=== PATIENT | female | born 1945 | race Hispanic/Latino ===

== ENCOUNTER 2019-03-12 00:13 | Emergency (ER) | payer OTHER ==
[~2019-03-12 00:13] MED LIST: ASPI-1012 PO; ATOR40TA71 PO; DONE5TAB33 PO; HYDR-4457 PO; HYDR12.54 PO; LORA10CA9 PO; LOSA25TA41 PO; METF-444 PO; SERT50TA12 PO; cranberry PO; vitamin c PO
[2019-03-12 00:36] LABS: BASOPHILS % (AUTO) 0.8 % (0.0-5.0); EOSINOPHILS % (AUTO) 1.7 % (0.0-8.0); HEMATOCRIT 35.3 % (36-48); LYMPHOCYTES % (AUTO) 16.9 % (21.0-51.0); MEAN CORPUSCULAR HEMOGLOBIN 29.7 pg (27.0-33.0); MEAN CORPUSCULAR HGB CONC 33.5 g/dL (32.0-36.0); MEAN CORPUSCULAR VOLUME 88.6 fL (79-99); MONOCYTES % (AUTO) 8.3 % (3.0-13.0); NEUTROPHILS % (AUTO) 72.3 % (40.0-77.0); PLATELET COUNT (AUTO) 305 K/uL (130-400); RED BLOOD CELL COUNT(AUTO) 3.99 MIL/uL (4.00-5.50); RED CELL DISTRIBUTION WIDTH 16.2 % (11.0-15.5); WHITE BLOOD COUNT (AUTO) 13.6 K/uL (4.8-10.8)
[2019-03-12 00:45] LABS: POTASSIUM 3.5 mmol/L (3.5-5.1)
[2019-03-12 00:47] LABS: INR 0.95 (0.85-1.15); PARTIAL THROMBOPLASTIN TIME 24.8 SEC (26.3-35.5)
[2019-03-12 00:49] LABS: ALBUMIN 3.9 g/dL (3.5-5.0); BILIRUBIN,TOTAL 0.6 mg/dL (0.2-1.0); TOTAL PROTEIN, SERUM 7.8 g/dL (6.0-8.3)
[2019-03-12] MEDS ORDERED: HYDROCODONE/ACETAMINOPHEN 5/325 MG TAB ONE (01:44)
[2019-03-12] MEDS ORDERED: KETOROLAC TROMETHAMINE 15MG/ML ONE (03:28)
== END 2019-03-12 04:11 | disposition home or self-care (01) ==
LOC: EDH 00:13
DX: M17.12 Unilateral primary osteoarthritis, left knee (principal); I10 Essential (primary) hypertension; F03.90 Unspecified dementia, unspecified severity, without behavioral disturbance, psychotic disturbance, mood disturbance, and anxiety; E11.9 Type 2 diabetes mellitus without complications; E78.5 Hyperlipidemia, unspecified; Z88.1 Allergy status to other antibiotic agents; Z88.8 Allergy status to other drugs, medicaments and biological substances; W18.39XA Other fall on same level, initial encounter; Y93.89 Activity, other specified; Y92.098 Other place in other non-institutional residence as the place of occurrence of the external cause; Y99.8 Other external cause status
CPT/HCPCS: 36415; 73562; 80053; 84484; 85025; 85378; 85610; 85730; 93005; 93971; 96374; 99285; J1885

== ENCOUNTER 2019-06-04 14:44 | Emergency (ER) | payer OTHER ==
[2019-06-04] MEDS ORDERED: IBUPROFEN 600 MG TABLET ONE (15:43)
== END 2019-06-04 15:56 | disposition home or self-care (01) ==
LOC: EDH 14:44
DX: S13.4XXA Sprain of ligaments of cervical spine, initial encounter (principal); R51 Headache; E11.9 Type 2 diabetes mellitus without complications; I10 Essential (primary) hypertension; E78.5 Hyperlipidemia, unspecified; F03.90 Unspecified dementia, unspecified severity, without behavioral disturbance, psychotic disturbance, mood disturbance, and anxiety; Z88.1 Allergy status to other antibiotic agents; V49.59XA Passenger injured in collision with other motor vehicles in traffic accident, initial encounter; Y93.89 Activity, other specified; Y92.410 Unspecified street and highway as the place of occurrence of the external cause; Y99.8 Other external cause status
CPT/HCPCS: 70450; 72125

== ENCOUNTER 2022-02-09 21:56 | Emergency (ER) | payer OTHER ==
[~2022-02-09] VITALS: Ht 154.9 cm; Wt 65.8 kg
[~2022-02-09 21:56] MED LIST changes: +SERT-439 PO; -SERT50TA12 PO
[2022-02-09 22:35] LABS: BASOPHILS % (AUTO) 0.6 % (0.0-5.0); EOSINOPHILS % (AUTO) 1.3 % (0.0-8.0); HEMATOCRIT 38.2 % (36-48); LYMPHOCYTES % (AUTO) 14.9 % (21.0-51.0); MEAN CORPUSCULAR HEMOGLOBIN 30.4 pg (27.0-33.0); MEAN CORPUSCULAR HGB CONC 32.7 g/dL (32.0-36.0); MEAN CORPUSCULAR VOLUME 92.9 fL (79-99); MONOCYTES % (AUTO) 10.3 % (3.0-13.0); NEUTROPHILS % (AUTO) 72.5 % (40.0-77.0); PLATELET COUNT (AUTO) 237 K/uL (130-400); RED BLOOD CELL COUNT(AUTO) 4.11 MIL/uL (4.00-5.50); WHITE BLOOD COUNT (AUTO) 9.8 K/uL (4.8-10.8)
[2022-02-09 22:37] LABS: APPEARANCE,URINE Clear (CLEAR); BILIRUBIN,URINE Negative (NEGATIVE); COLOR,URINE Yellow (YELLOW); GLUCOSE, URINE (UA) Negative (NEGATIVE); KETONES,URINE Negative (NEGATIVE); LEUKOCYTE ESTERASE ,URINE Moderate (NEGATIVE); NITRATE,URINE Positive (NEGATIVE); OCCULT BLOOD,URINE Trace (NEGATIVE); PH,URINE 5.5 (5.0-8.0); PROTEIN,URINE Negative (NEGATIVE); UROBILINOGEN,URINE 0.2 mg/dL (0.2-1.0)
[2022-02-09 22:57] LABS: BACTERIA,URINE Moderate /HPF (None Seen); RBC,URINE 0-1 /HPF (0-1)
[2022-02-09 22:58] LABS: SQUAMOUS EPITHELIAL CELL,UR Rare /HPF (0-2)
[2022-02-09 23:21] LABS: POTASSIUM 3.7 mmol/L (3.5-5.1)
[2022-02-09 23:26] LABS: ALBUMIN 4.2 g/dL (3.5-5.0); BILIRUBIN,TOTAL 0.3 mg/dL (0.2-1.0); TOTAL PROTEIN, SERUM 8.2 g/dL (6.0-8.3)
[2022-02-09 23:42] LABS: INR 0.96 (0.85-1.15); PARTIAL THROMBOPLASTIN TIME 21.1 SEC (26.3-35.5)
[2022-02-09 23:49] VITALS: BP 139/62
[2022-02-10] MEDS ORDERED: MACR100 PO (00:12)
== END 2022-02-10 00:27 | disposition home or self-care (01) ==
LOC: EDH 21:56
DX: N30.00 Acute cystitis without hematuria (principal); K92.2 Gastrointestinal hemorrhage, unspecified; N93.9 Abnormal uterine and vaginal bleeding, unspecified; E11.9 Type 2 diabetes mellitus without complications; F32.A Depression, unspecified; I10 Essential (primary) hypertension; Z79.82 Long term (current) use of aspirin; Z79.84 Long term (current) use of oral hypoglycemic drugs; Z79.899 Other long term (current) drug therapy; Z88.1 Allergy status to other antibiotic agents
CPT/HCPCS: 36415; 70450; 80053; 81001; 85025; 85610; 85730; 87077; 87088; 87186

== ENCOUNTER 2024-12-21 14:12 | Inpatient (IN) | payer OTHER ==
[~2024-12-21] VITALS: Ht 157.5 cm; Wt 50.1 kg
[~2024-12-21 14:12] MED LIST changes: +MACR100 PO
--- NOTE | 2024-12-21 14:54 | ERN ---
General Chief Complaint: Other Problems Stated Complaint: WORSENING DEMENTIA AND DIARRHEA Time Seen by MD: 14:15 Source: patient, family History of Present Illness Initial Comments Patient is a 79-year-old female with a past medical history of diabetes, hypertension, hypercholesterolemia, depression, and dementia. Patient was brought to the emergency room by her granddaughter with complaints of loose stools for 3 days. Patient said the diarrhea was sudden in onset, continuous in frequency. Patient has changed pads 4 times today. There is associated loss of appetite Allergies: Coded Allergies: cephalexin (Unverified Allergy, Intermediate, SWELLING, 10/15/18) famciclovir (Unverified Allergy, Mild, DONT REMEMBER, 10/15/18) Home Meds Active Scripts Nitrofurantoin/Nitrofuran Mac (Macrobid) 100 Mg Cap, 1 CAP PO BID for 7 Days, #14 CAP 0 Refills Prov:JEM CHUA MD 02/10/22 Hydrocodone/Acetaminophen ([place] 5-325 Tablet) 1 Each Tablet, 1-2 EACH PO Q6HPRN PRN for psin, #90 TAB Prov:KYLAH IBARRA MD 10/20/18 Aspirin (ASPIRIN) 325 Mg Tablet, 325 MG PO BID, #60 TAB Prov:KYLAH IBARRA MD 10/20/18 Reported Medications [cranberry] No Conflict Check, 1 TAB PO DAILY 10/15/18 [vitamin c] No Conflict Check, 2000 MG PO DAILY 10/15/18 Atorvastatin Calcium (Atorvastatin Calcium) 40 Mg Tablet, 40 MG PO DAILY, TAB 10/15/18 Hydrochlorothiazide (Hydrochlorothiazide) 12.5 Mg Tablet, 12.5 MG PO DAILY, TAB 10/15/18 Metformin HCl (Metformin HCl) 500 Mg Tablet, 500 MG PO BID, TAB 10/15/18 Donepezil HCl (Donepezil HCl) 5 Mg Tablet, 5 MG PO HS, TAB 10/15/18 Sertraline HCl (Sertraline HCl) 50 Mg Tablet, 50 MG PO DAILY, TAB 10/15/18 Loratadine (Loratadine) 10 Mg Capsule, 10 MG PO DAILY, CAP 10/15/18 Losartan Potassium (Losartan Potassium) 25 Mg Tablet, 25 MG PO DAILY, TAB 10/15/18 Past Medical History Past Medical History: Dementia, Diabetes-Type II, Hypertension Past Surgical History: None ROS Dictation Unable to obtain a review of system because of patient's dementia and poor cognition Physical Exam Physical Exam Dictation General: Alert & Oriented, No acute distress. EENT: No conjunctival redness or discharge noted Tympanic membranes are clear, Normal hearing, Oral mucosa is moist, No pharyngeal erythema, No nasal discharge, No oral lesions. Neck: Non-tender, No jugular vein distention, No lymphadenopathy, No thyromegaly, Supple. Respiratory: Lungs are clear to auscultation, Respirations are non-labored, Breath sounds are equal, No chest wall tenderness, _. Cardiovascular: Normal rate, Normal rhythm, No murmur, Good pulses equal in all extremities, Normal peripheral perfusion, No edema. Gastrointestinal: Soft, Non-tender, Non-distended, Normal bowel sounds, No organomegaly, _. Musculoskeletal: Normal range of motion, Normal strength, No tenderness, No swelling, No deformity, Normal gait. Integumentary: Warm, Dry, [place], Intact, No pallor, No rash. Neurologic: Alert, Oriented x4, Normal sensory, No focal defects Psychiatric: Cooperative, Appropriate mood & affect, Normal judgement, Non- suicidal. Results Laboratory and Microbiology Lab and Micro Result Laboratory Tests Test 12/21/24 15:50 White Blood Count 13.4 K/uL (4.8-10.8) H Red Blood Count 3.85 MIL/uL (4.00-5.50) L Hemoglobin 12.1 g/dL (12.0-16.0) Hematocrit 35.2 % (36-48) L Mean Corpuscular Volume 91.4 fL (79-99) Mean Corpuscular Hemoglobin 31.4 pg (27.0-33.0) Mean Corpuscular Hemoglobin Concent 34.4 g/dL (32.0-36.0) Red Cell Distribution Width 14.2 % (11.0-15.5) Platelet Count 324 K/uL (130-400) Mean Platelet Volume 10.5 fL (7.5-10.5) Immature Granulocyte % (Auto) 0.6 % (0-1) Neutrophils (%) (Auto) 88.3 % (40.0-77.0) H Lymphocytes (%) (Auto) 4.6 % (21.0-51.0) L Monocytes (%) (Auto) 6.4 % (3.0-13.0) Eosinophils (%) (Auto) 0.0 % (0.0-8.0) Basophils (%) (Auto) 0.1 % (0.0-5.0) Neutrophils # (Auto) 11.8 K/uL (1.8-7.7) H Lymphocytes # (Auto) 0.6 K/uL (1.0-4.8) L Monocytes # (Auto) 0.9 K/uL (0.1-1.0) Eosinophils # (Auto) 0.00 K/uL (0.00-0.70) Basophils # (Auto) 0.02 K/uL (0.00-0.20) Absolute Immature Granulocyte (auto 0.08 K/uL (0-1) Nucleated Red Blood Cells 0.0 % (0.0-0.19) White Cell Morphology Comment See comments Sodium Level 144 mmol/L (136-145) Potassium Level 3.6 mmol/L (3.5-5.1) Chloride Level 106 mmol/L (101-111) Carbon Dioxide Level 28 mmol/L (21-32) Blood Urea Nitrogen 31 mg/dL (7-18) H Creatinine 1.5 mg/dL (0.5-1.0) H Glomerular Filtration Rate Calc 35 mL/min (>90) Random Glucose 224 mg/dL (70-105) H Total Calcium 8.6 mg/dL (8.5-10.1) Total Bilirubin 0.5 mg/dL (0.2-1.0) Aspartate Amino Transf (AST/SGOT) 23 U/L (10-37) Alanine Aminotransferase (ALT/SGPT) 14 U/L (12-78) Alkaline Phosphatase 94 U/L (50-136) Total Protein 7.6 g/dL (6.0-8.3) Albumin 3.2 g/dL (3.5-5.0) L MDM Potential differential diagnoses include: * Acute gastroenteritis * Dementia * Dehydration Assessment: I will order a CBC was done in order to to rule any anemia, infections and to evaluate, CMP was ordered in order to assess. various electrolytes, kidney function, liver function ,protein levels and blood glucose levels, Urinalysis to rule out any urinary tract infection. PCR stool to rule out any viruses as a cause of the loose stools. We will order a CT head and brain without contrast to rule out any ischemia as a cause of altered mental status.Will order 1 Liter of NS for adequate hydration. I will re-evaluate the patient after treatment and diagnostic exams have returned to determine whether they require further testing, can be safely discharged home, or need admission for further treatment and evaluation. Given the social determinants of health affecting care, including literacy, access to medical care, prescription drug management, and [id number] drugs, I will ensure that treatment plans are tailored accordingly. Revaluation : Patient is alert and oriented. Continues with the confusion and agitation Disposition: Will admit the patient for further evaluation and management. Attestation: Patient's case was discussed with the ER MD. Reviewed the documentation, medical decision making and treatment plan. Agrees with the findings and plan of care. CC: Worsening behavior aggression due to dementia, also a few days of loose stool. Historian: Granddaughter, patient has a dementia and is an unreliable historian. Comorbidities: Advanced age, dementia, diabetes type 2, hypertension Limitations by social determinants of health: None Vital signs: Mild hypertension otherwise stable, remained stable here in the ER. Differential diagnosis: Worsening dementia, UTI, infection, brain bleed, metabolic abnormality, diarrhea, dehydration, other. Labs (independently ordered and interpreted by me): Leukocytosis 13.4 1000 left shift 88% neutrophils. No bands. No anemia. Chemistry panel shows a creatinine 1.5 BUN at 31, mild DIANNE. I compared this to previous labs and this appears to be an DIANNE. Also hyperglycemia 224. No signs of DKA CT head without contrast ( independently interpreted by me ): No acute bleeding. CT abdomen and pelvis without contrast ( independently interpreted by me ): No acute abnormalities. No free air. No surgical changes. No major abnormalities. treatment in ED: 1 L of normal saline, Rocephin Patient has DIANNE leukocytosis and diarrhea and hyperglycemia. We will treat these conditions here in the ER. Also the patient was significantly worsening dementia in the family is unable to care for the patient. Patient will need lalit e management for placement afterwards. Family agrees with the admission. We will admit. Consultation: Hospitalist for admission. ED Course Orders Procedure Category Date Status Time Cbc With Differential LAB 12/21/24 Complete 14:19 Comprehensive LAB 12/21/24 Complete Metabolic Panel 14:19 0.9%Nacl 1000ml (Ns PHA 2/12/25 Complete 1000ml) 14:30 Stool Culture YADIRA 12/21/24 Logged 14:21 Stool Panel Gi By Pcr LAB 12/21/24 Logged 14:47 Ct Head/Brain W/O CT 12/21/24 Resulted Contrast 14:47 Ct Abdomen/Pelvis W/O CT 12/21/24 Resulted Contrast 14:47 Urinalysis Profile LAB 12/21/24 Logged 14:54 Lactated Ringers PHA 12/21/24 In Process 1000ml (Lactated 17:00 Ceftriaxone 1g Vial PHA 12/21/24 Complete (Rocephine 1g Inj) 17:00 Current Medications Medications (Trade) Dose Ordered Sig/Pasha Route PRN Reason Start Time Stop Time Status Last Admin Dose Admin Ceftriaxone Sodium (ROCEphine 1G INJ) 1 gm ONCE ONCE IVPB 12/21/24 17:00 12/21/24 17:12 DC Lactated Ringer's 1,000 ml @ 125 mls/hr ONCE ONCE IV 12/21/24 17:00 12/22/24 00:59 Sodium Chloride 1,000 ml @ 0 mls/hr ONCE ONCE IV 12/21/24 14:30 12/21/24 14:31 DC Vital Signs Date Time Temp Pulse Resp B/P (MAP) Pulse Ox O2 Delivery O2 Flow Rate FiO2 12/21/24 14:14 99.7 98 20 150/79 98 0 DX & DISP Disposition: Inpatient Departure Impression: Primary Impression: DIANNE (acute kidney injury) Additional Impressions: History of dementia, Dehydration, Diarrhea, Hyper glycemia Critical Time: 30 minutes (Critical Care Procedure NoteAuthorized and Performed by: meTotal critical care time: Approximately 36 minutesDue to a high probability of clinically significant, life threatening deterioration, the patient required my highest level of preparedness to intervene emergently and I personally spent this critical care time directly and personally managing the patient. This critical care time included obtaining a history; examining the patient; pulse oximetry; ordering and review of studies; arranging urgent treatment with development of a management plan; evaluation of patient's re sponse to treatment; frequent reassessment; and, discussions with other providers.This critical care time was performed to assess and manage the high probability of imminent, life-threatening deterioration that could result in multi-organ failure. It was exclusive of separately billable procedures and treating other patients and teaching time.Please see MDM section and the rest of the note for further information on patient assessment and treatment.) Condition: Stable Referrals: RODRIGUE DUKE MD (PCP) SINDHU FUNG MD Dec 21, 2024 14:54 LELAND NAJERA DO Dec 21, 2024 16:58
--- NOTE | 2024-12-21 16:03 | HMCIMG ---
CT HEAD/BRAIN W/O CONTRAST HISTORY: Altered mental status COMPARISON: None TECHNIQUE: Multiple sequential axial images of the head were obtained from the base of the skull through vertex. Patient was not given contrast through intravenous route. FINDINGS: The ventricles and extraventricular CSF spaces are dilated consistent with cerebral atrophy. Nonspecific white matter changes seen. There is no midline shift, mass effect or herniation. No acute intracranial bleed is seen. Visualized portion of the paranasal sinuses are grossly within normal limits. IMPRESSION: 1. No acute intracranial bleed is seen. 2. Atrophy with white matter changes. CT was performed with one or more following dose reduction techniques: automated exposure control, adjustment of the mA and kv according to patient's size, or use of a iterative reconstruction technique.
[2024-12-21 16:05] LABS: BASOPHILS # (AUTO) 0.02 K/uL (0.00-0.20); BASOPHILS % (AUTO) 0.1 % (0.0-5.0); HEMATOCRIT 35.2 % (36-48); IMMATURE GRANULOCYTE ABSOLUTE 0.08 K/uL (0-1); LYMPHOCYTES # (AUTO) 0.6 K/uL (1.0-4.8); LYMPHOCYTES % (AUTO) 4.6 % (21.0-51.0); MEAN CORPUSCULAR HEMOGLOBIN 31.4 pg (27.0-33.0); MEAN CORPUSCULAR HGB CONC 34.4 g/dL (32.0-36.0); MEAN CORPUSCULAR VOLUME 91.4 fL (79-99); MONOCYTES # (AUTO) 0.9 K/uL (0.1-1.0); MONOCYTES % (AUTO) 6.4 % (3.0-13.0); NEUTROPHILS # (AUTO) 11.8 K/uL (1.8-7.7); NEUTROPHILS % (AUTO) 88.3 % (40.0-77.0); PLATELET COUNT (AUTO) 324 K/uL (130-400); RED BLOOD CELL COUNT(AUTO) 3.85 MIL/uL (4.00-5.50); RED CELL DISTRIBUTION WIDTH 14.2 % (11.0-15.5); WHITE BLOOD COUNT (AUTO) 13.4 K/uL (4.8-10.8)
--- NOTE | 2024-12-21 16:14 | HMCIMG ---
CT ABDOMEN/PELVIS W/O CONTRAST HISTORY: Diarrhea COMPARISON: None TECHNIQUE: Multiple sequential axial images of the abdomen and pelvis were obtained from the dome of the diaphragm through symphysis pubis. Patient was not given contrast through intravenous route. Oral contrast was not given. FINDINGS: No pleural effusion is seen bilaterally. There is no evidence of parenchymal disease or pulmonary nodule of the visualized lower lungs. Degenerative changes of the thoracolumbar spine are present. The heart is not enlarged. Contrast is seen in the colon. The liver, spleen, adrenal glands and pancreas are unremarkable. There is no evidence of hydronephrosis bilaterally. No evidence of renal stone is seen. Fecal material is seen in the colon. There are normal size retroperitoneal and mesenteric lymph nodes. No ascites is seen. Atherosclerotic changes are present. Pelvic sidewalls are symmetric bilaterally. There is right hip prosthesis causing artifacts limiting evaluation. Bladder is well distended without wall thickening. Circumferential wall thickening is seen of the rectum. There is seen within the bladder may be related to recent instrumentation. If clinically indicated, urinalysis correlation may be helpful. IMPRESSION: 1. No acute findings. CT was performed with one or more following dose reduction techniques: automated exposure control, adjustment of the mA and kv according to patient's size, or use of a iterative reconstruction technique.
[2024-12-21 16:21] LABS: CREATININE 1.5 mg/dL (0.5-1.0); POTASSIUM 3.6 mmol/L (3.5-5.1)
[2024-12-21 16:31] LABS: ALBUMIN 3.2 g/dL (3.5-5.0); BILIRUBIN,TOTAL 0.5 mg/dL (0.2-1.0); TOTAL PROTEIN, SERUM 7.6 g/dL (6.0-8.3)
--- NOTE | 2024-12-21 17:40 | HP ---
[facility] HISTORY & PHYSICAL Date Patient Seen: Dec 21, 2024 Time of Visit: 1944 Supervising Physician: [Dr. Franco Lui] Primary Care Physician: [Dr. Acosta] Outpatient Specialists: [ ] Inpatient Consults: [ ] PROBLEM LIST: Worsening dementia-POA DIANNE-POA Dehydration-POA Intractable diarrhea -POA Geriatric failure to thrive-POA DM Primary HTN HLD Prior stroke PLAN: -Admit to medsurg -Avoid mind-altering meds -IV fluids for hydration -Pending UA to rule-out UTI; negative for symptoms. ED gave her a dose of IV Rocephin -Obtain stool CX and GI panel -Consult contracting specialist for nutrition eval -Consult case management for discharge planning and placement, family is unable to take care of her and was thinking if she can be placed in a half-way HPI: [Patient is a 79-year-old female with PMH significant for prior stroke, dementia, HTn, HLD and DM who has presented tot ED accompanied by her family concerning worsening dementia and 1-week duration diarrhea. Apparently, she has been more confused than usual and [id number] lately. She would have bowel incontinence and would play with the feces. She has been refusing to eat and drink. Significant negatives are fever, chills, N/V, chest pain, abdominal pain, generalized weakness, dyspnea or syncope. Family was concerned that they cannot take care of her anymore and needs to be placed in a nursing or dementia home. At [facility] ED, her preliminary labworks revealed DIANNE, no leukocytosis and CXR was unremarkable. Head CT was negative for acute intracranial abnormality. She was given IV fluid resuscitation and IV Rocephin pending urinalysis.ON my assessment, patient was found walking in the hallway, steady and without signs of distress or compromise. She was accompanied by her [id number]. She is confused but carries conversation in high spirits and laughs a lot. Family denies visual or auditory hallucination. It was just progressive worsening of confusion and management of ADLs. PAST MEDICAL HX: see above PAST SURGICAL HX: noncontributory SOCIAL HISTORY: No tobacco, ETOH, or illicit drug use Coded Allergies: cephalexin (Unverified Allergy, Intermediate, SWELLING, 10/15/18) famciclovir (Unverified Allergy, Mild, DONT REMEMBER, 10/15/18) REVIEW OF SYSTEMS: 12 point ROS reviewed with patient. Pertinent positives mentioned above. Otherwise negative. PHYSICAL EXAM: GENERAL: alert, awake oriented x 1 HEENT: EOMI, Sclera non icteric, moist mucosa NECK: Supple, no JVD, trachea midline LUNGS: Clear breath sounds bilaterally. No wheezes HEART: Regular rate and rhythm. Normal S1 and S2, without murmurs ABD: Abdomen soft, nontender. Bowel sounds present EXT: No clubbing cyanosis or edema NEURO: Alert and oriented to self, follows commands Vital Signs (last 8hr) Date Time Temp Pulse Resp B/P (MAP) Pulse Ox O2 Delivery O2 Flow Rate FiO2 12/21/24 14:14 99.7 98 20 150/79 98 0 LABS: Hematology Labs: Test 12/21/24 15:50 Range/Units White Blood Count 13.4 H 4.8-10.8 K/uL Red Blood Count 3.85 L 4.00-5.50 MIL/uL Hemoglobin 12.1 12.0-16.0 g/dL Hematocrit 35.2 L 36-48 % Mean Corpuscular Volume 91.4 79-99 fL Mean Corpuscular Hemoglobin 31.4 27.0-33.0 pg Mean Corpuscular Hemoglobin Concent 34.4 32.0-36.0 g/dL Red Cell Distribution Width 14.2 11.0-15.5 % Platelet Count 324 130-400 K/uL Mean Platelet Volume 10.5 7.5-10.5 fL Immature Granulocyte % (Auto) 0.6 0-1 % Neutrophils (%) (Auto) 88.3 H 40.0-77.0 % Lymphocytes (%) (Auto) 4.6 L 21.0-51.0 % Monocytes (%) (Auto) 6.4 3.0-13.0 % Eosinophils (%) (Auto) 0.0 0.0-8.0 % Basophils (%) (Auto) 0.1 0.0-5.0 % Neutrophils # (Auto) 11.8 H 1.8-7.7 K/uL Lymphocytes # (Auto) 0.6 L 1.0-4.8 K/uL Monocytes # (Auto) 0.9 0.1-1.0 K/uL Eosinophils # (Auto) 0.00 0.00-0.70 K/uL Basophils # (Auto) 0.02 0.00-0.20 K/uL Absolute Immature Granulocyte (auto 0.08 0-1 K/uL Nucleated Red Blood Cells 0.0 0.0-0.19 % White Cell Morphology Comment See comments Chemistry Labs: Test 12/21/24 15:50 Range/Units Sodium Level 144 136-145 mmol/L Potassium Level 3.6 3.5-5.1 mmol/L Chloride Level 106 101-111 mmol/L Carbon Dioxide Level 28 21-32 mmol/L Blood Urea Nitrogen 31 H 7-18 mg/dL Creatinine 1.5 H 0.5-1.0 mg/dL Glomerular Filtration Rate Calc 35 >90 mL/min Random Glucose 224 H 70-105 mg/dL Total Calcium 8.6 8.5-10.1 mg/dL Total Bilirubin 0.5 0.2-1.0 mg/dL Aspartate Amino Transf (AST/SGOT) 23 10-37 U/L Alanine Aminotransferase (ALT/SGPT) 14 12-78 U/L Alkaline Phosphatase 94 50-136 U/L Total Protein 7.6 6.0-8.3 g/dL Albumin 3.2 L 3.5-5.0 g/dL DIAGNOSTICS / RADIOLOGY RESULTS: [ ] PLAN NEURO: Minimize central acting medications as possible. Maintain fall precautions, adequate lighting during the day PULMONARY: Supplemental 02 as needed. Maintain aspiration precautions at all times CARDIOVASCULAR: Follow hemodynamics. Vital signs per facility protocol GI & NUTRITION: Continue with nutritional support. Continue stool softeners and laxatives as needed. KIDNEYS & ELECTROLYTES: Strict monitoring of intake, output and overall fluid balance. Avoid nephrotoxic medications to the extent possible. Medications to be dosed according to renal function. Monitor electrolytes and replace as needed ENDOCRINE: Maintain blood glucose between 100-180 at all times. Hypoglycemia protocol in place INFECTIOUS DISEASE: Trend temperature, WBC and procalcitonin level Follow cultures, deescalate antibiotics as soon as possible. Panculture if new onset fever ONCOLOGY/HEMATOLOGY/COAGULATION: Monitor for s/s of bleeding Monitor hemoglobin, coagulation studies as needed SKIN: Pressure ulcer prevention per facility protocol Specialty mattress ORTHO/REHAB: Continue PT/OT Prophylaxis: Continue GI and DVT prophylaxis Code Status: Full Resuscitation Disposition: TBD Other: Total patient care time: 35 minutes ALE LOPES Dec 21, 2024 17:40
[2024-12-21] MEDS: LACTATED RINGERS 1000ML 1,000 ML IV SCH (18:00)
[2024-12-21] MEDS ORDERED: acetaMINOPHEN 325 MG TAB PO PRN (18:00)
[2024-12-21] MEDS ORDERED: ondanSETRON 4MG INJ IVP PRN (18:00)
[2024-12-21] MEDS ORDERED: LAbetaLOL 20MG SYG IV PRN (18:00)
[2024-12-21] MEDS ORDERED: DEXTROSE 50%-WATER 50 ML DISP.SYRIN IV PRN (18:00)
[2024-12-21] MEDS ORDERED: GLUCAGON 1MG KIT 1 MG ML IM PRN (18:00)
[2024-12-21] MEDS: INSULIN humuLIN R 100 UNIT/ML 3ML SQ SCH (21:00)
[2024-12-21] MEDS: LACTATED RINGERS 1000ML 1,000 ML IV ONE (23:00)
[2024-12-21] MEDS: 0.9%NACL 1000ML 1,000 ML IV ONE (23:00)
[2024-12-21] MEDS: cefTRIAXone 1G VIAL IVPB ONE (23:02)
[2024-12-21] MEDS: cefTRIAXone 1G VIAL ONE (23:25)
[2024-12-22 06:18] LABS: BASOPHILS # (AUTO) 0.03 K/uL (0.00-0.20); BASOPHILS % (AUTO) 0.2 % (0.0-5.0); EOSINOPHILS # (AUTO) 0.01 K/uL (0.00-0.70); EOSINOPHILS % (AUTO) 0.1 % (0.0-8.0); HEMATOCRIT 33.3 % (36-48); LYMPHOCYTES # (AUTO) 0.5 K/uL (1.0-4.8); LYMPHOCYTES % (AUTO) 3.6 % (21.0-51.0); MEAN CORPUSCULAR HEMOGLOBIN 31.4 pg (27.0-33.0); MEAN CORPUSCULAR HGB CONC 33.6 g/dL (32.0-36.0); MEAN CORPUSCULAR VOLUME 93.3 fL (79-99); MONOCYTES # (AUTO) 0.9 K/uL (0.1-1.0); MONOCYTES % (AUTO) 6.8 % (3.0-13.0); NEUTROPHILS % (AUTO) 88.6 % (40.0-77.0); PLATELET COUNT (AUTO) 308 K/uL (130-400); RED BLOOD CELL COUNT(AUTO) 3.57 MIL/uL (4.00-5.50); RED CELL DISTRIBUTION WIDTH 14.2 % (11.0-15.5); WHITE BLOOD COUNT (AUTO) 13.5 K/uL (4.8-10.8)
[2024-12-22 06:44] LABS: CREATININE 1.1 mg/dL (0.5-1.0); PHOSPHORUS 3.1 mg/dL (2.5-4.9); POTASSIUM 3.1 mmol/L (3.5-5.1); THYROID STIMULATING HORMONE 0.92 uIU/mL (0.36-3.74)
--- NOTE | 2024-12-22 07:15 | NUR ---
ASSUMED CARE AT THIS TIME
--- NOTE | 2024-12-22 09:30 | NUR ---
PT HAD A RED BLOODY STOOL BOWEL MOVEMENT
--- NOTE | 2024-12-22 12:03 | NUR ---
PT HAD A BOWEL MOVEMENT
--- NOTE | 2024-12-22 12:17 | PN ---
[facility] PROGRESS NOTE Date Patient Seen: Dec 22, 2024 Time of Visit: 12:07 Supervising Physician: [Dr Lui Primary Care Physician: [Dr. Acosta] Outpatient Specialists: [ ] Inpatient Consults: [ ] PROBLEM LIST: Toxic metabolic encephalopathy Worsening dementia-POA DIANNE- ST 3B GFR 35 ML/MIN -POA Dehydration-POA Intractable diarrhea -POA Geriatric failure to thrive-POA Type 2 DM w/ hyperglycemia Primary HTN HLD Prior stroke PLAN SUMMARY: Supplemental oxygen as needed Continue Rocephin Start Flagyl Continue IV fluids Obtain UA and culture PT evaluate and treat Cm to refer to SNF INTERVAL HISTORY: [Patient is a 79-year-old female with PMH significant for prior stroke, dementia, HTn, HLD and DM who has presented tot ED accompanied by her family concerning worsening dementia and 1-week duration diarrhea. Apparently, she has been more confused than usual and [id number] lately. She would have bowel incontinence and would play with the feces. She has been refusing to eat and drink. Significant negatives are fever, chills, N/V, chest pain, abdominal pain, generalized weakness, dyspnea or syncope. Family was concerned that they cannot take care of her anymore and needs to be placed in a nursing or dementia home. At [facility] ED, her preliminary labworks revealed DIANNE, no leukocytosis and CXR was unremarkable. Head CT was negative for acute intracranial abnormality. She was given IV fluid resuscitation and IV Rocephin pending urinalysis.ON my assessment, patient was found walking in the hallway, steady and without signs of distress or compromise. She was accompanied by her [id number]. She is confused but carries conversation in high spirits and laughs a lot. Family denies visual or auditory hallucination. It was just progressive worsening of confusion and management of ADLs. 12/22 - patient is seen and evaluated in the ED. Patient continues to be encephalopathic however she was awake alert and quite confused. Patient remains on room air with no signs of respiratory distress. We are still pending UA to rule out acute cystitis. No acute changes reported overnight. Vital signs are stable. We will start patient on empiric antibiotics given she remains with leukocytosis. CT of the abdomen and pelvis unremarkable. CT of the head showed no acute intracranial bleed. We will request case management to refer patient for SNF placement. We will continue current treatment plan for now. REVIEW OF SYSTEMS: Unable to obtain due to patient's encephalopathic state. PHYSICAL EXAM: GENERAL: alert, awake oriented x 1 HEENT: EOMI, Sclera non icteric, moist mucosa NECK: Supple, no JVD, trachea midline LUNGS: Clear breath sounds bilaterally. No wheezes HEART: Regular rate and rhythm. Normal S1 and S2, without murmurs ABD: Abdomen soft, nontender. Bowel sounds present EXT: No clubbing cyanosis or edema NEURO: Alert and oriented to self, follows commands Vital Signs (last 8hr) Date Time Temp Pulse Resp B/P (MAP) Pulse Ox O2 Delivery O2 Flow Rate FiO2 12/22/24 07:59 97.9 65 20 118/76 98 Room Air* 0 21 LABS: Hematology Labs: Test 12/22/24 06:07 12/21/24 15:50 Range/Units White Blood Count 13.5 H 4.8-10.8 K/uL Red Blood Count 3.57 L 4.00-5.50 MIL/uL Hemoglobin 11.2 L 12.0-16.0 g/dL Hematocrit 33.3 L 36-48 % Mean Corpuscular Volume 93.3 79-99 fL Mean Corpuscular Hemoglobin 31.4 27.0-33.0 pg Mean Corpuscular Hemoglobin Concent 33.6 32.0-36.0 g/dL Red Cell Distribution Width 14.2 11.0-15.5 % Platelet Count 308 130-400 K/uL Mean Platelet Volume 10.2 7.5-10.5 fL Immature Granulocyte % (Auto) 0.7 0-1 % Neutrophils (%) (Auto) 88.6 H 40.0-77.0 % Lymphocytes (%) (Auto) 3.6 L 21.0-51.0 % Monocytes (%) (Auto) 6.8 3.0-13.0 % Eosinophils (%) (Auto) 0.1 0.0-8.0 % Basophils (%) (Auto) 0.2 0.0-5.0 % Neutrophils # (Auto) 12.0 H 1.8-7.7 K/uL Lymphocytes # (Auto) 0.5 L 1.0-4.8 K/uL Monocytes # (Auto) 0.9 0.1-1.0 K/uL Eosinophils # (Auto) 0.01 0.00-0.70 K/uL Basophils # (Auto) 0.03 0.00-0.20 K/uL Absolute Immature Granulocyte (auto 0.10 0-1 K/uL Nucleated Red Blood Cells 0.0 0.0-0.19 % White Cell Morphology Comment See comments Chemistry Labs: Test 12/22/24 11:43 12/22/24 06:07 12/21/24 15:50 Range/Units Whole Blood Glucose 125 H 70-110 MG/DL Sodium Level 149 H 136-145 mmol/L Potassium Level 3.1 L 3.5-5.1 mmol/L Chloride Level 111 101-111 mmol/L Carbon Dioxide Level 24 21-32 mmol/L Blood Urea Nitrogen 24 H 7-18 mg/dL Creatinine 1.1 H 0.5-1.0 mg/dL Glomerular Filtration Rate Calc 51 >90 mL/min Random Glucose 124 H 70-105 mg/dL Total Calcium 8.1 L 8.5-10.1 mg/dL Phosphorus Level 3.1 2.5-4.9 mg/dL Magnesium Level 2.00 1.80-2.40 mg/dL Thyroid Stimulating Hormone (TSH) 0.92 0.36-3.74 uIU/mL Total Bilirubin 0.5 0.2-1.0 mg/dL Aspartate Amino Transf (AST/SGOT) 23 10-37 U/L Alanine Aminotransferase (ALT/SGPT) 14 12-78 U/L Alkaline Phosphatase 94 50-136 U/L Total Protein 7.6 6.0-8.3 g/dL Albumin 3.2 L 3.5-5.0 g/dL DIAGNOSTICS / RADIOLOGY RESULTS: Signed PATIENT: MATTHEW HIGH MR#: [id number] : 1945 SEX: F AGE: 79 LOCATION: [facility] ORDER 1450 STATUS: [facility] REPORT#: [id number] SERVICE 1447 REASON: altered mental status ORDERING PHYSICIAN: SINDHU FUNG MD PROCEDURE: ABD PEL WO - CT ABDOMEN/PELVIS W/O CONTRAST CT ABDOMEN/PELVIS W/O CONTRAST HISTORY: Diarrhea COMPARISON: None TECHNIQUE: Multiple sequential axial images of the abdomen and pelvis were obtained from the dome of the diaphragm through symphysis pubis. Patient was not given contrast through intravenous route. Oral contrast was not given. FINDINGS: No pleural effusion is seen bilaterally. There is no evidence of parenchymal disease or pulmonary nodule of the visualized lower lungs. Degenerative changes of the thoracolumbar spine are present. The heart is not enlarged. Contrast is seen in the colon. The liver, spleen, adrenal glands and pancreas are unremarkable. There is no evidence of hydronephrosis bilaterally. No evidence of renal stone is seen. Fecal material is seen in the colon. There are normal size retroperitoneal and mesenteric lymph nodes. No ascites is seen. Atherosclerotic changes are present. Pelvic sidewalls are symmetric bilaterally. There is right hip prosthesis causing artifacts limiting evaluation. Bladder is well distended without wall thickening. Circumferential wall thickening is seen of the rectum. There is seen within the bladder may be related to recent instrumentation. If clinically indicated, urinalysis correlation may be helpful. IMPRESSION: 1. No acute findings. CT was performed with one or more following dose reduction techniques: automated exposure control, adjustment of the mA and kv according to patient's size, or use of a iterative reconstruction technique. DICTATED BY: RUSS ELIAS MD DATE: 12/21/24 1608 ELECTRONICALLY SIGNED BY: RUSS ELIAS MD DATE: 12/21/24 1614 PATIENT: MATTHEW HIGH MR#: [id number] : 1945 SEX: F AGE: 79 LOCATION: [facility] ORDER 1450 STATUS: ADM IN REPORT#: [id number] SERVICE 1447 REASON: altered mental status ORDERING PHYSICIAN: SINDHU FUNG MD PROCEDURE: HEAD WO - CT HEAD/BRAIN W/O CONTRAST CT HEAD/BRAIN W/O CONTRAST HISTORY: Altered mental status COMPARISON: None TECHNIQUE: Multiple sequential axial images of the head were obtained from the base of the skull through vertex. Patient was not given contrast through intravenous route. FINDINGS: The ventricles and extraventricular CSF spaces are dilated consistent with cerebral atrophy. Nonspecific white matter changes seen. There is no midline shift, mass effect or herniation. No acute intracranial bleed is seen. Visualized portion of the paranasal sinuses are grossly within normal limits. IMPRESSION: 1. No acute intracranial bleed is seen. 2. Atrophy with white matter changes. CT was performed with one or more following dose reduction techniques: automated exposure control, adjustment of the mA and kv according to patient's size, or use of a iterative reconstruction technique. DICTATED BY: RUSS ELIAS MD DATE: 12/21/241555 ELECTRONICALLY SIGNED BY: RUSS ELIAS MD DATE: 12/21/241 PLAN NEURO: Minimize central acting medications as possible. Maintain fall precautions, adequate lighting during the day PULMONARY: Supplemental 02 as needed. Maintain aspiration precautions at all times CARDIOVASCULAR: Follow hemodynamics. Vital signs per facility protocol GI & NUTRITION: Continue with nutritional support. Continue stool softeners and laxatives as needed. KIDNEYS & ELECTROLYTES: Strict monitoring of intake, output and overall fluid balance. Avoid nephrotoxic medications to the extent possible. Medications to be dosed according to renal function. Monitor electrolytes and replace as needed ENDOCRINE: Maintain blood glucose between 100-180 at all times. Hypoglycemia protocol in place INFECTIOUS DISEASE: Trend temperature, WBC and procalcitonin level Follow cultures, deescalate antibiotics as soon as possible. Panculture if new onset fever ONCOLOGY/HEMATOLOGY/COAGULATION: Monitor for s/s of bleeding Monitor hemoglobin, coagulation studies as needed SKIN: Pressure ulcer prevention per facility protocol Specialty mattress ORTHO/REHAB: Continue PT/OT Prophylaxis: Continue GI and DVT prophylaxis Code Status: Full Resuscitation Disposition: Home versus SNF Other: Total patient care time: 35 minutes ATTESTATION BY PHYSICIAN I attest that I reviewed and discussed the case with the Physician Director Advertising as well as agree with the Physician Director Advertising's findings, plans of care, and documentation above. Franco Irvin MD,GABBY N POWER LINEMAN Dec 22, 2024 12:17
[2024-12-22] MEDS: CEFTRIAXONE 2GM VIAL IVPB SCH (12:30)
[2024-12-22] MEDS: metRONIDazole 500MG/100ML BAG IV SCH (13:27)
--- NOTE | 2024-12-22 17:44 | NUR ---
SNF Referral Skilled need unclear. Per [facility], SNF need is for physical therapy. Order received for PT. CM to follow up.
--- NOTE | 2024-12-22 18:22 | NUR ---
PT HAD A LARGE BOWEL MOVEMENT
--- NOTE | 2024-12-22 18:45 | NUR ---
CALLED [facility] WITH RESULTS AND NEW ORDERS.
--- NOTE | 2024-12-22 18:47 | NUR ---
SPOKE TO DR CISNEROS GI CONSULT, COLON PREP IF PT IS ABLE TO TOLERATE SCHEDULE COLONOSCOPY FOR TOMMORROW.
[2024-12-22] MEDS: LOPERAMIDE HCL 2 MG CAP PO ONE (19:00)
--- NOTE | 2024-12-22 19:05 | NUR ---
SPEECH TRIGGER COMPLETED DUE TO DEHYDRATION AND Hx OF CVA. Pt IS A 79 Y.O. FEMALE ADMITTED SECONDARY TO [facility], WORSENING DEMENTIA AND DEHYDRATION. Pt HAS A PAST MEDICAL HISTORY SIGNIFICANT FOR CVA; DEMENTIA; HTN; HLD; AND DM. Pt CURRENTLY ON HEART HEALTHY DIET (REGULAR TEXTURE AND THIN LIQUIDS). PER NURSE FERNANDO, Pt TOLERATING DIET WITH NO OVERT S/S OF ASPIRATION HOWEVER REQUIRES FEEDING ASSISTANCE AND/OR 1:1 SUPERVISION DURING ORAL INTAKE. PLEASE REQUEST SPEECH THERAPY SERVICES FOR SKILLED BEDSIDE SWALLOW EVALUATION IF Pt PRESENTS WITH +S/S OF ASPIRATION SUCH COUGH RESPONSE, THROAT CLEAR, OR WET VOCAL QUALITY DURING ORAL INTAKE. ALL QUESTIONS ANSWERED AT THIS TIME. Addendum: 12/22/[address] [facility] Amended: Links added.
--- NOTE | 2024-12-22 19:09 | CONS ---
GASTROENTEROLOGY CONSULTATION NOTE Date of Consultation: Dec 22, 2024 Time of Consultation: 19:09 History of Present Illness: This is a 79-year-old female with past medical history of CVA, hyperlipidemia, hypertension, diabetes, dementia who presented to the hospital due to diarrhea. Patient has been more confused than baseline. She has been having poor appetite. We were consulted due to hematochezia. CT abdomen and pelvis revealed circumferential wall thickening in the rectum. WBC 13.5, hemoglobin 11.2 with a platelet count of 308. Patient had a positive FOBT. Review of Systems: CONSTITUTIONAL: No malaise or change in sensation of wellbeing. ENMT: No rhinorrhea, otorrhea, sinus pain, ear ache. CARDIOVASCULAR: No angina, palpitations, orthopnea or paroxysmal dyspnea. RESPIRATORY: No SOB. GASTROINTESTINAL: No abdominal pain, nausea, vomiting, diarrhea, hematemesis, melena or change in the patient's habitual bowel movements consistency/number. GENITOURINARY: No dysuria, hematuria or change in bladder continence. MUSCULOSKELETAL: No new muscle pain or decrease in muscular strength. No new joint swelling, redness or tenderness. SKIN: No new rash. Past Medical History: PAST MEDICAL HX: see above PAST SURGICAL HX: noncontributory SOCIAL HISTORY: No tobacco, ETOH, or illicit drug use Coded Allergies: cephalexin (Unverified Allergy, Intermediate, SWELLING, 10/15/18) famciclovir (Unverified Allergy, Mild, DONT REMEMBER, 10/15/18) Coded Allergies: cephalexin (Unverified Allergy, Intermediate, SWELLING, 10/15/18) famciclovir (Unverified Allergy, Mild, DONT REMEMBER, 10/15/18) Physical Exam: GEN: Awake, alert, oriented in person, time and place, and in no acute distress. HEENT: No sinus tenderness. Tympanic membranes were not examined. No rhinorrhea. Oral pharyngeal mucosa is pink, moist and within normal limits. Neck is supple with no cervical lymphadenopathy, thyromegaly or JVD. CHEST: Inspection, palpation and percussion of the chest were unremarkable. Lung auscultation revealed normal breath sounds bilaterally. CARDIAC: PMI is within normal limits. Heart sounds are regular. Normal S1, S2. No gallop or murmur. ABD: Soft, non-tender and not distended. No peritoneal signs on palpation. No organomegaly. Normal bowel sounds. EXT: No cyanosis or clubbing. No edema. SKIN: Intact. No rashes. JOINTS: No evidence of synovitis or acute arthritis. NEURO: Alert and oriented to name, place and person. Cranial nerve examination is unremarkable. No focal motor deficits. Normal speech. Gait is normal. Strength is normal. Vital Sign (Last 24 Hours) 12/22/24 14:00 Temp 97.9 Pulse 70 Resp 18 B/P (MAP) 128/55 Pulse Ox 98 O2 Delivery Room Air* O2 Flow Rate 0 FiO2 21 Laboratory: [ ] Laboratory: Test 12/22/24 11:43 12/22/24 09:13 12/22/24 06:07 12/21/24 15:50 Range/Units Whole Blood Glucose 125 H 70-110 MG/DL Stool Occult Blood POSITIVE H NEGATIVE Stool Lactoferrin (JEF) POSITIVE H NEGATIVE White Blood Count 13.5 H 4.8-10.8 K/uL Red Blood Count 3.57 L 4.00-5.50 MIL/uL Hemoglobin 11.2 L 12.0-16.0 g/dL Hematocrit 33.3 L 36-48 % Mean Corpuscular Volume 93.3 79-99 fL Mean Corpuscular Hemoglobin 31.4 27.0-33.0 pg Mean Corpuscular Hemoglobin Concent 33.6 32.0-36.0 g/dL Red Cell Distribution Width 14.2 11.0-15.5 % Platelet Count 308 130-400 K/uL Mean Platelet Volume 10.2 7.5-10.5 fL Immature Granulocyte % (Auto) 0.7 0-1 % Neutrophils (%) (Auto) 88.6 H 40.0-77.0 % Lymphocytes (%) (Auto) 3.6 L 21.0-51.0 % Monocytes (%) (Auto) 6.8 3.0-13.0 % Eosinophils (%) (Auto) 0.1 0.0-8.0 % Basophils (%) (Auto) 0.2 0.0-5.0 % Neutrophils # (Auto) 12.0 H 1.8-7.7 K/uL Lymphocytes # (Auto) 0.5 L 1.0-4.8 K/uL Monocytes # (Auto) 0.9 0.1-1.0 K/uL Eosinophils # (Auto) 0.01 0.00-0.70 K/uL Basophils # (Auto) 0.03 0.00-0.20 K/uL Absolute Immature Granulocyte (auto 0.10 0-1 K/uL Nucleated Red Blood Cells 0.0 0.0-0.19 % Sodium Level 149 H 136-145 mmol/L Potassium Level 3.1 L 3.5-5.1 mmol/L Chloride Level 111 101-111 mmol/L Carbon Dioxide Level 24 21-32 mmol/L Blood Urea Nitrogen 24 H 7-18 mg/dL Creatinine 1.1 H 0.5-1.0 mg/dL Glomerular Filtration Rate Calc 51 >90 mL/min Random Glucose 124 H 70-105 mg/dL Total Calcium 8.1 L 8.5-10.1 mg/dL Phosphorus Level 3.1 2.5-4.9 mg/dL Magnesium Level 2.00 1.80-2.40 mg/dL Thyroid Stimulating Hormone (TSH) 0.92 0.36-3.74 uIU/mL White Cell Morphology Comment See comments Total Bilirubin 0.5 0.2-1.0 mg/dL Aspartate Amino Transf (AST/SGOT) 23 10-37 U/L Alanine Aminotransferase (ALT/SGPT) 14 12-78 U/L Alkaline Phosphatase 94 50-136 U/L Total Protein 7.6 6.0-8.3 g/dL Albumin 3.2 L 3.5-5.0 g/dL Current Medications Medications (Trade) Dose Ordered Sig/Pasha Route PRN Reason Start Time Stop Time Status Last Admin Dose Admin Acetaminophen (TYLenol 325MG TAB) 650 mg Q6H PRN PO FEVER/MILD PAIN LEVEL 1-3 12/21/24 18:00 01/20/25 17:59 Ceftriaxone Sodium (Rocephin 2gm Inj) 2 gm Q24H IVPB 12/22/24 12:30 01/01/25 12:29 12/22/24 12:30 2 GM Dextrose (D50w) 50 ml AD PRN IV HYPOGLYCEMIA PROTOCOL 12/21/24 18:00 01/20/25 17:59 Glucagon (Glucagon 1mg Kit) 1 mg AD PRN IM HYPOGLYCEMIA PROTOCOL 12/21/24 18:00 01/20/25 17:59 Insulin Human Regular (humuLIN R 100 UNIT/ML 3ML) INSULIN SLIDING SCAL... ACHS SQ 12/21/24 21:00 01/20/25 20:59 Labetalol HCl (TRANdate 20MG SYG) 5 mg Q2H PRN IV SBP GREATER THAN 160 12/21/24 18:00 01/20/25 17:59 Lactated Ringer's 1,000 ml @ 50 mls/hr Q20H IV 12/21/24 18:00 01/20/25 17:59 12/22/24 15:01 50 MLS/HR Magnesium Sulfate 50 ml @ 0 mls/hr PROTOCOL PRN IV MAGNESIUM PROTOCOL 12/21/24 18:00 01/20/25 17:59 Metronidazole/ Sodium Chloride (flaGYL) 500 mg Q8H IV 12/22/24 13:30 01/01/25 13:29 12/22/24 13:27 500 MG Ondansetron HCl (zoFRAN 4MG INJ) 4 mg Q6H PRN IVP NAUSEA/VOMITING 12/21/24 18:00 01/20/25 17:59 Pantoprazole Sodium (PROTonix 40MG INJ) 40 mg BID IVP 12/22/24 21:00 01/21/25 20:59 Diagnostics / Radiology: [COPY/PASTE HERE IF NO REPORTS PLEASE DELETE SECTION] Assessment: Hematochezia Abnormal imaging with rectal wall thickening Diarrhea CVA Plan: Obtain stool studies Will consider flex sig, if family agreeable. Continue GI prophylaxis Advance diet as tolerated Avoid NSAIDs Antireflux measures Monitor H&H and transfuse as needed Call with questions, concerns or change in clinical status Patient to follow-up at clinic post discharge Thank you for this consult EMPERATRIZ MARTINEZ Dec 22, 2024 19:09
[2024-12-22 20:16] LABS: ADD UA MICROSCOPIC YES; APPEARANCE,URINE CLEAR (CLEAR); BILIRUBIN,URINE NEGATIVE (NEGATIVE); COLOR,URINE YELLOW (YELLOW); GLUCOSE, URINE (UA) NEGATIVE (NEGATIVE); KETONES,URINE 20 mg/dL (NEGATIVE); LEUKOCYTE ESTERASE ,URINE NEGATIVE Leu/uL (NEGATIVE); NITRATE,URINE NEGATIVE (NEGATIVE); OCCULT BLOOD,URINE MODERATE (NEGATIVE); PH,URINE 5.5 (5.0-8.0); PROTEIN,URINE 50 mg/dL (NEGATIVE); UROBILINOGEN,URINE 0.2 mg/dL (0.2-1.0)
[2024-12-22 20:18] LABS: BACTERIA,URINE FEW /HPF (None Seen); MUCUS,URINE RARE LPF (None Seen); SQUAMOUS EPITHELIAL CELL,UR RARE /HPF (0-2)
[2024-12-22] MEDS: PEG 3350/NA SULF,BICARB,CL/KCL 4000 ML SOLN PO ONE (21:15)
[2024-12-22] MEDS ORDERED: PoTASSium chl 10% ELIXIR 20MEQ 20 MEQ/15 ML UDCUP PO PRN (21:30)
--- NOTE | 2024-12-22 21:45 | NUR ---
ATTEMPTED TO ADMINISTER GOLYTELY, PATIENT NOT TOLERATING INTAKE
[2024-12-22] MEDS: PANTOPrazole 40 MG/VIAL IVP SCH (21:55)
[2024-12-22] MEDS: PoTASSium chloRIDE 20MEQ/100ML 100 ML IV PRN (21:55)
--- NOTE | 2024-12-22 22:36 | NUR ---
ATTEMPTED TO CONTACT PATIENT'S SON, NO ANSWER AT THIS TIME
[2024-12-22] MEDS: PEG 3350/NA SULF,BICARB,CL/KCL 4000 ML SOLN ONE (23:20)
--- NOTE | 2024-12-22 23:51 | NUR ---
REPORT GIVEN TO NURSE WALKER
[2024-12-23] VITALS (8 sets, daily range): BP systolic 94–148; BP diastolic 45–67; PULSE 51–107; RESP 16–22; TEMP 97.7–98.7; O2SAT 97–100
[2024-12-23 00:56] LABS: HEMATOCRIT 31.3 % (36-48)
[2024-12-23 05:31] LABS: HEMATOCRIT 27.7 % (36-48); MEAN CORPUSCULAR HEMOGLOBIN 30.8 pg (27.0-33.0); MEAN CORPUSCULAR HGB CONC 33.6 g/dL (32.0-36.0); MEAN CORPUSCULAR VOLUME 91.7 fL (79-99); RED BLOOD CELL COUNT(AUTO) 3.02 MIL/uL (4.00-5.50); RED CELL DISTRIBUTION WIDTH 14.3 % (11.0-15.5); WHITE BLOOD COUNT (AUTO) 11.4 K/uL (4.8-10.8)
[2024-12-23 05:49] LABS: CREATININE 0.9 mg/dL (0.5-1.0); MAGNESIUM 1.9 mg/dL (1.80-2.40); PHOSPHORUS 2.6 mg/dL (2.5-4.9); POTASSIUM 3.1 mmol/L (3.5-5.1)
[2024-12-23] MEDS: PoTASSium chloRIDE 20MEQ ER 20 MEQ ERTAB PO PRN (06:56)
[2024-12-23] MEDS: MAGNESIUM 2GM PREMIX 50ML 50 ML IV PRN (06:56)
--- NOTE | 2024-12-23 08:00 | NUR ---
DISCUSSED WITH PATIENT THE IMPORTANCE OF DRINKING ORAL PREP FOR EGD. PATIENT VERBALIZED UNDERSTANDING. BUT STATED SHE WILL NOT DRINK IT. NOTIFY Ismael LAYO NURSE PRACTITIONER FOR GI
--- NOTE | 2024-12-23 08:35 | NUR ---
CALLED PHARMACY TO NOTIFY THEM I DO HAVE HAVE A WORKING WOW AND ARE NOT ABLE TO SCAN PATIENT MEDICATIONS. SPOKE WITH Ismael JENIFER. SHE STATED SHE WILL PRINT PAPER E-MAR.
--- NOTE | 2024-12-23 10:27 | PN ---
[facility] PROGRESS NOTE Date Patient Seen: Dec 23, 2024 Time of Visit: 10:22 Supervising Physician: Dr Dante Miranda Primary Care Physician: [Dr. Acosta] Outpatient Specialists: [ ] Inpatient Consults: [ ] PROBLEM LIST: Toxic metabolic encephalopathy Worsening dementia-POA DIANNE- ST 3B GFR 35 ML/MIN -POA Dehydration-POA Intractable diarrhea -POA Acute blood loss anemia d/t hematochezia Geriatric failure to thrive-POA Type 2 DM w/ hyperglycemia Primary HTN HLD Prior stroke PLAN SUMMARY: Supplemental oxygen as needed Continue Rocephin Continue Flagyl Continue IV fluids Monitor H & H closely Transfuse if needed to maintain HGB > 7.0 GI consult PT evaluate and treat Cm to refer to SNF INTERVAL HISTORY: [Patient is a 79-year-old female with PMH significant for prior stroke, aaliyah ntia, HTn, HLD and DM who has presented tot ED accompanied by her family concerning worsening dementia and 1-week duration diarrhea. Apparently, she has been more confused than usual and glt-fe-fwezbax lately. She would have bowel incontinence and would play with the feces. She has been refusing to eat and drink. Significant negatives are fever, chills, N/V, chest pain, abdominal pain, generalized weakness, dyspnea or syncope. Family was concerned that they cannot take care of her anymore and needs to be placed in a nursing or dementia home. At [facility] ED, her preliminary labworks revealed DIANNE, no leukocytosis and CXR was unremarkable. Head CT was negative for acute intracranial abnormality. She was given IV fluid resuscitation and IV Rocephin pending urinalysis.ON my assessment, patient was found walking in the hallway, steady and without signs of distress or compromise. She was accompanied by her [id number]. She is confused but carries conversation in high spirits and laughs a lot. Family denies visual or auditory hallucination. It was just progressive worsening of confusion and management of ADLs. 12/22 - patient is seen and evaluated in the ED. Patient continues to be encephalopathic however she was awake alert and quite confused. Patient remains on room air with no signs of respiratory distress. We are still pending UA to rule out acute cystitis. No acute changes reported overnight. Vital signs are stable. We will start patient on empiric antibiotics given she remains with leukocytosis. CT of the abdomen and pelvis unremarkable. CT of the head showed no acute intracranial bleed. We will request case management to refer patient for SNF placement. We will continue current treatment plan for now. 12/23 - patient is seen lying in bed resting quietly continues to be confused. Patient does not appear to be in any acute distress at this time. Patient is awake alert however demented. Was informed by nursing that patient has started having a large amount of bloody stools yesterday evening. As per nursing, no recurrent hematochezia this morning. Patient was evaluated by GI and recommended a colonoscopy however patient was not able to tolerate GoLYTELY. Instructed nursing to attempt once again today. We will follow GI recommendations. Patient's vital signs are stable. Labs show H&H slowly trending down to 9.3/27.7 from 12.1/35.2 On admission. We will monitor c losely. REVIEW OF SYSTEMS: Unable to obtain due to patient's encephalopathic state. PHYSICAL EXAM: GENERAL: alert, awake oriented x 1 HEENT: EOMI, Sclera non icteric, moist mucosa NECK: Supple, no JVD, trachea midline LUNGS: Clear breath sounds bilaterally. No wheezes HEART: Regular rate and rhythm. Normal S1 and S2, without murmurs ABD: Abdomen soft, nontender. Bowel sounds present EXT: No clubbing cyanosis or edema NEURO: Alert and oriented to self, follows commands Vital Signs (last 8hr) Date Time Temp Pulse Resp B/P (MAP) Pulse Ox O2 Delivery O2 Flow Rate FiO2 12/23/24 08:19 98.1 107 16 148/67 97 12/23/24 08:00 97 Room Air* 0 21 12/23/24 04:00 97.7 51 16 94/51 100 Room Air LABS: Hematology Labs: Test 12/23/24 05:15 12/22/24 06:07 12/21/24 15:50 Range/Units White Blood Count 11.4 H 4.8-10.8 K/uL Red Blood Count 3.02 L 4.00-5.50 MIL/uL Hemoglobin 9.3 L 12.0-16.0 g/dL Hematocrit 27.7 L 36-48 % Mean Corpuscular Volume 91.7 79-99 fL Mean Corpuscular Hemoglobin 30.8 27.0-33.0 pg Mean Corpuscular Hemoglobin Concent 33.6 32.0-36.0 g/dL Red Cell Distribution Width 14.3 11.0-15.5 % Platelet Count 271 130-400 K/uL Mean Platelet Volume 10.3 7.5-10.5 fL Nucleated Red Blood Cells 0.0 0.0-0.19 % Immature Granulocyte % (Auto) 0.7 0-1 % Neutrophils (%) (Auto) 88.6 H 40.0-77.0 % Lymphocytes (%) (Auto) 3.6 L 21.0-51.0 % Monocytes (%) (Auto) 6.8 3.0-13.0 % Eosinophils (%) (Auto) 0.1 0.0-8.0 % Basophils (%) (Auto) 0.2 0.0-5.0 % Neutrophils # (Auto) 12.0 H 1.8-7.7 K/uL Lymphocytes # (Auto) 0.5 L 1.0-4.8 K/uL Monocytes # (Auto) 0.9 0.1-1.0 K/uL Eosinophils # (Auto) 0.01 0.00-0.70 K/uL Basophils # (Auto) 0.03 0.00-0.20 K/uL Absolute Immature Granulocyte (auto 0.10 0-1 K/uL White Cell Morphology Comment See comments Chemistry Labs: Test 12/23/24 05:27 12/23/24 05:15 12/22/24 06:07 12/21/24 15:50 Range/Units Whole Blood Glucose 75 70-110 MG/DL Sodium Level 146 H 136-145 mmol/L Potassium Level 3.1 L 3.5-5.1 mmol/L Chloride Level 110 101-111 mmol/L Carbon Dioxide Level 32 21-32 mmol/L Blood Urea Nitrogen 19 H 7-18 mg/dL Creatinine 0.9 0.5-1.0 mg/dL Glomerular Filtration Rate Calc 65 >90 mL/min Random Glucose 89 70-105 mg/dL Total Calcium 7.7 L 8.5-10.1 mg/dL Phosphorus Level 2.6 2.5-4.9 mg/dL Magnesium Level 1.90 1.80-2.40 mg/dL Procalcitonin 0.16 0.05-0.5 ng/mL Thyroid Stimulating Hormone (TSH) 0.92 0.36-3.74 uIU/mL Total Bilirubin 0.5 0.2-1.0 mg/dL Aspartate Amino Transf (AST/SGOT) 23 10-37 U/L Alanine Aminotransferase (ALT/SGPT) 14 12-78 U/L Alkaline Phosphatase 94 50-136 U/L Total Protein 7.6 6.0-8.3 g/dL Albumin 3.2 L 3.5-5.0 g/dL DIAGNOSTICS / RADIOLOGY RESULTS: [ ] PLAN NEURO: Minimize central acting medications as possible. Maintain fall precautions, adequate lighting during the day PULMONARY: Supplemental 02 as needed. Maintain aspiration precautions at all times CARDIOVASCULAR: Follow hemodynamics. Vital signs per facility protocol GI & NUTRITION: Continue with nutritional support. Continue stool softeners and laxatives as needed. KIDNEYS & ELECTROLYTES: Strict monitoring of intake, output and overall fluid balance. Avoid nephrotoxic medications to the extent possible. Medications to be dosed according to renal function. Monitor electrolytes and replace as needed ENDOCRINE: Maintain blood glucose between 100-180 at all times. Hypoglycemia protocol in place INFECTIOUS DISEASE: Trend temperature, WBC and procalcitonin level Follow cultures, deescalate antibiotics as soon as possible. Panculture if new onset fever ONCOLOGY/HEMATOLOGY/COAGULATION: Monitor for s/s of bleeding Monitor hemoglobin, coagulation studies as needed SKIN: Pressure ulcer prevention per facility protocol Specialty mattress ORTHO/REHAB: Continue PT/OT Prophylaxis: Continue GI and DVT prophylaxis Code Status: Full Resuscitation Disposition: Home versus SNF Other: Total patient care time: 35 minutes ATTESTATION BY PHYSICIAN The patient has been seen and evaluated, the case has been discussed with the DIRECTOR OF MEDICAL STAFF SERVICES, I agree with the clinical findings and plan of care. Reji Miranda MD, ECTOR N ANITHA Dec 23, 2024 10:27
--- NOTE | 2024-12-23 10:47 | NUR ---
DCP PENDING SW reviewed chart, family requesting placement for pt with worsening dementia. Attempted to reach son Felix [phone] and granddaughter Susi [phone], left messages. Sent grand daughter text requesting call to discuss dcp. Sw visited with pt who was emotional, states she missed daughter and who 2 weeks apart from cancer. Pt states she lives at home alone, but then states she misses her home and wants to go back. Pt states she has a shower chair, and no in home care services. Family drives her to appts and to shop for groceries because she cooks for everyone. SW to verify above information
--- NOTE | 2024-12-23 11:00 | NUR ---
Order received and patient seen. Patient unsafe to go home at this time as she tends to lose her balance during gait. Verbalized this to patient and she voiced understanding. PT team to follow. Addendum: 12/23/24 at 1215 by MELINA DAVIS PT Amended: Links added.
--- NOTE | 2024-12-23 11:22 | NUR ---
DCP: EDMUNDO hardy DURANGO Lamine spoke to pt's son Felix [phone]. Pt lives at his home and family provides assist with ADLS, and home management, meal prep and transportation. Family requesting SNF with terminal block assembler placement. Son gave verbal consent for referral to be made. CM made aware
--- NOTE | 2024-12-23 11:30 | NUR ---
BLOOD GLUCOSE 206. COVERED WITH HUMULIN R 3 UNITS SUBCUTANEOUS; FOLLOWING INSULIN SCALE IN PATIENTS E-JAN.
[2024-12-23 12:45] LABS: HEMATOCRIT 30.3 % (36-48)
--- NOTE | 2024-12-23 13:00 | NUR ---
DID NOT REMOVED TELEMETRY DUE TO PATIENT HAVING A POTASSIUM OF 3.1 AND A MAGNESIUM OF 1.5. PLACED PROTOCOL TELEMETRY DISCONTINUATION PAPER ON PATIENTS CHART.
--- NOTE | 2024-12-23 16:20 | NUR ---
BLOOD GLUCOSE 116. NO INSULIN COVERAGE NEEDED AT THIS TIME.
--- NOTE | 2024-12-23 17:41 | PN ---
GASTROENTEROLOGY PROGRESS NOTE Date of Visit: Dec 23, 2024 Time of Visit: 17:41 Events / Notes: No acute events overnight. Patient is planned for colonoscopy today however she did not complete prep. She is refusing prep last night. Today she had 2 bowel movements without any overt GI bleeding. Hemoglobin is stable. Review of Systems: CONSTITUTIONAL: No malaise or change in sensation of wellbeing. ENMT: No rhinorrhea, otorrhea, sinus pain, ear ache. CARDIOVASCULAR: No angina, palpitations, orthopnea or paroxysmal dyspnea. RESPIRATORY: No SOB. GASTROINTESTINAL: No abdominal pain, nausea, vomiting, diarrhea, hematemesis, melena or change in the patient's habitual bowel movements consistency/number. GENITOURINARY: No dysuria, hematuria or change in bladder continence. MUSCULOSKELETAL: No new muscle pain or decrease in muscular strength. No new joint swelling, redness or tenderness. SKIN: No new rash. Physical Exam: GEN: Awake, alert, oriented in person, time and place, and in no acute distress. HEENT: No sinus tenderness. Tympanic membranes were not examined. No rhinorrhea. Oral pharyngeal mucosa is pink, moist and within normal limits. Neck is supple with no cervical lymphadenopathy, thyromegaly or JVD. CHEST: Inspection, palpation and percussion of the chest were unremarkable. Lung auscultation revealed normal breath sounds bilaterally. CARDIAC: PMI is within normal limits. Heart sounds are regular. Normal S1, S2. No gallop or murmur. ABD: Soft, non-tender and not distended. No peritoneal signs on palpation. No organomegaly. Normal bowel sounds. EXT: No cyanosis or clubbing. No edema. SKIN: Intact. No rashes. JOINTS: No evidence of synovitis or acute arthritis. NEURO: Alert and oriented to name, place and person. Cranial nerve examination is unremarkable. No focal motor deficits. Normal speech. Gait is normal. Strength is normal. Vital Signs (last 8hr) Date Time Temp Pulse Resp B/P (MAP) Pulse Ox O2 Delivery O2 Flow Rate FiO2 12/23/24 16:27 98.2 61 17 110/53 98 12/23/24 12:00 98.8 53 22 106/45 100 Laboratory: [ ] Laboratory: Test 12/23/24 16:06 12/23/24 12:33 12/23/24 05:15 12/22/24 20:05 Range/Units Whole Blood Glucose 116 H 70-110 MG/DL Hemoglobin 10.3 L 12.0-16.0 g/dL Hematocrit 30.3 L 36-48 % White Blood Count 11.4 H 4.8-10.8 K/uL Red Blood Count 3.02 L 4.00-5.50 MIL/uL Mean Corpuscular Volume 91.7 79-99 fL Mean Corpuscular Hemoglobin 30.8 27.0-33.0 pg Mean Corpuscular Hemoglobin Concent 33.6 32.0-36.0 g/dL Red Cell Distribution Width 14.3 11.0-15.5 % Platelet Count 271 130-400 K/uL Mean Platelet Volume 10.3 7.5-10.5 fL Nucleated Red Blood Cells 0.0 0.0-0.19 % Sodium Level 146 H 136-145 mmol/L Potassium Level 3.1 L 3.5-5.1 mmol/L Chloride Level 110 101-111 mmol/L Carbon Dioxide Level 32 21-32 mmol/L Blood Urea Nitrogen 19 H 7-18 mg/dL Creatinine 0.9 0.5-1.0 mg/dL Glomerular Filtration Rate Calc 65 >90 mL/min Random Glucose 89 70-105 mg/dL Total Calcium 7.7 L 8.5-10.1 mg/dL Phosphorus Level 2.6 2.5-4.9 mg/dL Magnesium Level 1.90 1.80-2.40 mg/dL Procalcitonin 0.16 0.05-0.5 ng/mL Urine Color YELLOW YELLOW Urine Appearance CLEAR CLEAR Urine pH 5.5 5.0-8.0 Urine Specific Story 1.021 1.001-1.031 Urine Protein 50 H NEGATIVE mg/dL Urine Glucose (UA) NEGATIVE NEGATIVE mg/dL Urine Ketones 20 H NEGATIVE mg/dL Urine Occult Blood MODERATE H NEGATIVE Urine Nitrate NEGATIVE NEGATIVE Urine Bilirubin NEGATIVE NEGATIVE mg/dL Urine Urobilinogen 0.2 0.2-1.0 mg/dL Urine Leukocyte Esterase NEGATIVE NEGATIVE Florecita/uL Urine RBC 2-5 H 0-1 /HPF Urine WBC 2-5 H 0-1 /HPF Urine Squamous Epithelial Cells RARE 0-2 /HPF Urine Bacteria FEW None Seen /HPF Test 12/22/24 09:13 12/22/24 06:07 Range/Units Stool Occult Blood POSITIVE H NEGATIVE Stool Lactoferrin (JEF) POSITIVE H NEGATIVE Immature Granulocyte % (Auto) 0.7 0-1 % Neutrophils (%) (Auto) 88.6 H 40.0-77.0 % Lymphocytes (%) (Auto) 3.6 L 21.0-51.0 % Monocytes (%) (Auto) 6.8 3.0-13.0 % Eosinophils (%) (Auto) 0.1 0.0-8.0 % Basophils (%) (Auto) 0.2 0.0-5.0 % Neutrophils # (Auto) 12.0 H 1.8-7.7 K/uL Lymphocytes # (Auto) 0.5 L 1.0-4.8 K/uL Monocytes # (Auto) 0.9 0.1-1.0 K/uL Eosinophils # (Auto) 0.01 0.00-0.70 K/uL Basophils # (Auto) 0.03 0.00-0.20 K/uL Absolute Immature Granulocyte (auto 0.10 0-1 K/uL Thyroid Stimulating Hormone (TSH) 0.92 0.36-3.74 uIU/mL Current Medications Medications (Trade) Dose Ordered Sig/Pasha Route PRN Reason Start Time Stop Time Status Last Admin Dose Admin Acetaminophen (TYLenol 325MG TAB) 650 mg Q6H PRN PO FEVER/MILD PAIN LEVEL 1-3 12/21/24 18:00 01/20/25 17:59 Ceftriaxone Sodium (Rocephin 2gm Inj) 2 gm Q24H IVPB 12/22/24 12:30 01/01/25 12:29 12/23/24 12:42 2 GM Dextrose (D50w) 50 ml AD PRN IV HYPOGLYCEMIA PROTOCOL 12/21/24 18:00 01/20/25 17:59 Glucagon (Glucagon 1mg Kit) 1 mg AD PRN IM HYPOGLYCEMIA PROTOCOL 12/21/24 18:00 01/20/25 17:59 Insulin Human Regular (humuLIN R 100 UNIT/ML 3ML) INSULIN SLIDING SCAL... ACHS SQ 12/21/24 21:00 01/20/25 20:59 12/23/24 12:48 3 UNIT Labetalol HCl (TRANdate 20MG SYG) 5 mg Q2H PRN IV SBP GREATER THAN 160 12/21/24 18:00 01/20/25 17:59 Lactated Ringer's 1,000 ml @ 50 mls/hr Q20H IV 12/21/24 18:00 01/20/25 17:59 12/23/24 09:29 50 MLS/HR Magnesium Sulfate 50 ml @ 0 mls/hr PROTOCOL PRN IV MAGNESIUM PROTOCOL 12/21/24 18:00 01/20/25 17:59 12/23/24 06:56 10 MLS/HR Metronidazole/ Sodium Chloride (flaGYL) 500 mg Q8H IV 12/22/24 13:30 01/01/25 13:29 12/23/24 12:49 500 MG Ondansetron HCl (zoFRAN 4MG INJ) 4 mg Q6H PRN IVP NAUSEA/VOMITING 12/21/24 18:00 01/20/25 17:59 Pantoprazole Sodium (PROTonix 40MG INJ) 40 mg BID IVP 12/22/24 21:00 01/21/25 20:59 12/23/24 09:28 40 MG Potassium Chloride 100 ml @ 100 mls/hr AD PRN IV POTASSIUM PROTOCOL 12/22/24 21:30 01/21/25 21:29 12/22/24 21:55 100 MLS/HR Potassium Chloride (K-Dur/Klor-Con 20meq) 20 meq AD PRN PO POTASSIUM PROTOCOL 12/22/24 21:30 01/21/25 21:29 12/23/24 12:44 20 MEQ Potassium Chloride (KCl 10% Elixir 20meq/15ml) 20 meq AD PRN PO POTASSIUM PROTOCOL 12/22/24 21:30 01/21/25 21:29 Diagnostics / Radiology: [COPY/PASTE HERE IF NO REPORTS PLEASE DELETE SECTION] Assessment: Hematochezia Abnormal imaging with rectal wall thickening Diarrhea CVA Plan: Obtain stool studies Defer colonoscopy at this time given noncompliance, stable hgb and no further overt GI bleeding Consider discussion for goals of care Family attempted to be reached and no response Continue GI prophylaxis Advance diet as tolerated Avoid NSAIDs Antireflux measures Monitor H&H and transfuse as needed Call with questions, concerns or change in clinical status Patient to follow-up at clinic post discharge Thank you for this consult EMPERATRIZ MARTINEZ Dec 23, 2024 17:41
[2024-12-24] VITALS (8 sets, daily range): BP systolic 99–135; BP diastolic 49–91; PULSE 54–89; RESP 16–18; TEMP 97.5–98.5; O2SAT 98–99
[2024-12-24 06:14] LABS: MEAN CORPUSCULAR HEMOGLOBIN 31.3 pg (27.0-33.0); MEAN CORPUSCULAR HGB CONC 33.2 g/dL (32.0-36.0); MEAN CORPUSCULAR VOLUME 94.3 fL (79-99); RED BLOOD CELL COUNT(AUTO) 2.97 MIL/uL (4.00-5.50); RED CELL DISTRIBUTION WIDTH 14.2 % (11.0-15.5); WHITE BLOOD COUNT (AUTO) 7.2 K/uL (4.8-10.8)
[2024-12-24 06:27] LABS: CREATININE 0.9 mg/dL (0.5-1.0); POTASSIUM 3.3 mmol/L (3.5-5.1)
--- NOTE | 2024-12-24 09:30 | NUR ---
[facility] Per Nya Landry, ins auth remains pending at this time.
--- NOTE | 2024-12-24 10:28 | PN ---
[facility] PROGRESS NOTE Date Patient Seen: Dec 24, 2024 Time of Visit: 10:23 Supervising Physician: [Dr Dante Miranda Primary Care Physician: [Dr. Acosta] Outpatient Specialists: [ ] Inpatient Consults: [ ] PROBLEM LIST: Toxic metabolic encephalopathy - improving Worsening dementia-POA DIANNE- ST 3B GFR 35 ML/MIN -POA - resolved Dehydration-POA resolve Intractable diarrhea -POA resolved Acute blood loss anemia d/t hematochezia - resolved - refused colonoscopy Geriatric failure to thrive-POA Type 2 DM w/ hyperglycemia Primary HTN HLD Prior stroke PLAN SUMMARY: Supplemental oxygen as needed Continue Rocephin Continue Flagyl Continue IV fluids Monitor H & H closely Transfuse if needed to maintain HGB > 7.0 Patient refused colonoscopy Outpatient follow up with GI PT evaluate and treat Cm to refer to SNF Dispo: [facility] once accepted INTERVAL HISTORY: [Patient is a 79-year-old female with PMH significant for prior stroke, dementia, HTn, HLD and DM who has presented tot ED accompanied by her family concerning worsening dementia and 1-week duration diarrhea. Apparently, she has been more confused than usual and [id number] lately. She would have bowel incontinence and would play with the feces. She has been refusing to eat and drink. Significant negatives are fever, chills, N/V, chest pain, abdominal pain, generalized weakness, dyspnea or syncope. Family was concerned that they cannot take care of her anymore and needs to be placed in a nursing or dementia home. At [facility] ED, her preliminary labworks revealed DIANNE, no leukocytosis and CXR was unremarkable. Head CT was negative for acute intracranial abnormality. She was given IV fluid resuscitation and IV Rocephin pending urinalysis.ON my assessment, patient was found walking in the hallway, steady and without signs of distress or compromise. She was accompanied by her [id number]. She is confused but carries conversation in high spirits and laughs a lot. Family denies visual or auditory hallucination. It was just progressive worsening of confusion and management of ADLs. 12/22 - patient is seen and evaluated in the ED. Patient continues to be encephalopathic however she was awake alert and quite confused. Patient remains on room air with no signs of respiratory distress. We are still pending UA to rule out acute cystitis. No acute changes reported overnight. Vital signs are stable. We will start patient on empiric antibiotics given she remains with leukocytosis. CT of the abdomen and pelvis unremarkable. CT of the head showed no acute intracranial bleed. We will request case management to refer patient for SNF placement. We will continue current treatment plan for now. 12/23 - patient is seen lying in bed resting quietly continues to be confused. Patient does not appear to be in any acute distress at this time. Patient is awake alert however demented. Was informed by nursing that patient has started having a large amount of bloody stools yesterday evening. As per nursing, no recurrent hematochezia this morning. Patient was evaluated by GI and r ecommended a colonoscopy however patient was not able to tolerate GoLYTELY. Instructed nursing to attempt once again today. We will follow GI recommendations. Patient's vital signs are stable. Labs show H&H slowly trending down to 9.3/27.7 from 12.1/35.2 On admission. We will monitor closely. 12/24 - Patient is seen sitting up in bed resting quietly. Patient's mental status continues to improve daily. Patient is awake alert however she does remain confused. No recurrent hematochezia noted or reported as per nursing. No acute changes reported overnight. H&H 9.3/28.0 as per today's labs. Patient refused to take colonoscopy prep therefore given the fact the patient has not had any recurrent hematochezia, GI has placed a colonoscopy on hold for now. Recommended outpatient follow up in the clinic2 weeks post discharge. Patient has been referred to [facility] and currently pending acceptance. Vital signs are stable. Labs are within normal limits. Procalcitonin negative. We will continue current treatment plan for now. We will DC to [facility] once accepted. REVIEW OF SYSTEMS: Unable to obtain due to patient's encephalopathic state. PHYSICAL EXAM: GENERAL: alert, awake oriented x 1 HEENT: EOMI, Sclera non icteric, moist mucosa NECK: Supple, no JVD, trachea midline LUNGS: Clear breath sounds bilaterally. No wheezes HEART: Regular rate and rhythm. Normal S1 and S2, without murmurs ABD: Abdomen soft, nontender. Bowel sounds present EXT: No clubbing cyanosis or edema NEURO: Alert and oriented to self, follows commands Vital Signs (last 8hr) Date Time Temp Pulse Resp B/P (MAP) Pulse Ox O2 Delivery O2 Flow Rate FiO2 12/24/24 08:00 97.7 54 17 124/53 99 Room Air 21 12/24/24 04:00 98.2 57 18 108/49 98 Room Air LABS: Hematology Labs: Test 12/24/24 05:56 Range/Units White Blood Count 7.2 4.8-10.8 K/uL Red Blood Count 2.97 L 4.00-5.50 MIL/uL Hemoglobin 9.3 L 12.0-16.0 g/dL Hematocrit 28.0 L 36-48 % Mean Corpuscular Volume 94.3 79-99 fL Mean Corpuscular Hemoglobin 31.3 27.0-33.0 pg Mean Corpuscular Hemoglobin Concent 33.2 32.0-36.0 g/dL Red Cell Distribution Width 14.2 11.0-15.5 % Platelet Count 255 130-400 K/uL Mean Platelet Volume 10.6 H 7.5-10.5 fL Nucleated Red Blood Cells 0.0 0.0-0.19 % Chemistry Labs: Test 12/24/24 05:56 12/24/24 05:33 12/23/24 05:15 Range/Units Sodium Level 141 136-145 mmol/L Potassium Level 3.3 L 3.5-5.1 mmol/L Chloride Level 106 101-111 mmol/L Carbon Dioxide Level 29 21-32 mmol/L Blood Urea Nitrogen 16 7-18 mg/dL Creatinine 0.9 0.5-1.0 mg/dL Glomerular Filtration Rate Calc 65 >90 mL/min Random Glucose 127 H 70-105 mg/dL Total Calcium 7.4 L 8.5-10.1 mg/dL Procalcitonin 0.06 0.05-0.5 ng/mL Whole Blood Glucose 104 70-110 MG/DL Phosphorus Level 2.6 2.5-4.9 mg/dL Magnesium Level 1.90 1.80-2.40 mg/dL DIAGNOSTICS / RADIOLOGY RESULTS: [ ] PLAN NEURO: Minimize central acting medications as possible. Maintain fall precautions, adequate lighting during the day PULMONARY: Supplemental 02 as needed. Maintain aspiration precautions at all times CARDIOVASCULAR: Follow hemodynamics. Vital signs per facility protocol GI & NUTRITION: Continue with nutritional support. Continue stool softeners and laxatives as needed. Outpatient follow up with GI KIDNEYS & ELECTROLYTES: Strict monitoring of intake, output and overall fluid balance. Avoid nephrotoxic medications to the extent possible. Medications to be dosed according to renal function. Monitor electrolytes and replace as needed ENDOCRINE: Maintain blood glucose between 100-180 at all times. Hypoglycemia protocol in place INFECTIOUS DISEASE: Trend temperature, WBC and procalcitonin level Follow cultures, deescalate antibiotics as soon as possible. Panculture if new onset fever ONCOLOGY/HEMATOLOGY/COAGULATION: Monitor for s/s of bleeding Monitor hemoglobin, coagulation studies as needed SKIN: Pressure ulcer prevention per facility protocol Specialty mattress ORTHO/REHAB: Continue PT/OT Prophylaxis: Continue GI and DVT prophylaxis Code Status: Full Resuscitation Disposition: [facility] once accepted Other: Total patient care time: 35 minutes ATTESTATION BY PHYSICIAN The patient has been seen and evaluated, the case has been discussed with the [employer], I agree with the clinical findings and plan of care. Reji Miranda MD, ECTOR N NP Dec 24, 2024 10:28
--- NOTE | 2024-12-24 11:45 | NUR ---
BLOOD GLUCOSE 201. COVERED WITH HUMULIN R 3 UNITS SUBCUTANEOUS; FOLLOWING INSULIN SCALE IN PATIENTS E-JAN.
[2024-12-24 15:13] LABS: C DIFFICILE TOXIN A/B Detected (Not Detected); ENTEROAGGREGATIVE ECOLI Not Detected (Not Detected); GIARDIA LAMBLIA Not Detected (Not Detected); PLESIOMONAS SHIGELOIDES Not Detected (Not Detected); SAPOVIRUS Not Detected (Not Detected); SHIGELLA/ENTEROINVASIVE E COLI Not Detected (Not Detected); VIBRIO Not Detected (Not Detected); VIBRIO CHOLERAE Not Detected (Not Detected)
--- NOTE | 2024-12-24 16:00 | NUR ---
BLOOD GLUCOSE 86. NO INSULIN COVERAGE NEEDED AT THIS TIME.
[2024-12-25] VITALS (8 sets, daily range): BP systolic 114–160; BP diastolic 67–98; PULSE 63–74; RESP 18–21; TEMP 97.8–99.1; O2SAT 98–99
[2024-12-25 05:53] LABS: BASOPHILS # (AUTO) 0.03 K/uL (0.00-0.20); BASOPHILS % (AUTO) 0.5 % (0.0-5.0); EOSINOPHILS % (AUTO) 1.8 % (0.0-8.0); HEMATOCRIT 28.8 % (36-48); IMMATURE GRANULOCYTE ABSOLUTE 0.04 K/uL (0-1); LYMPHOCYTES % (AUTO) 17.9 % (21.0-51.0); MEAN CORPUSCULAR HEMOGLOBIN 31.3 pg (27.0-33.0); MEAN CORPUSCULAR HGB CONC 34.4 g/dL (32.0-36.0); MEAN CORPUSCULAR VOLUME 91.1 fL (79-99); MONOCYTES # (AUTO) 0.5 K/uL (0.1-1.0); MONOCYTES % (AUTO) 8.1 % (3.0-13.0); PLATELET COUNT (AUTO) 297 K/uL (130-400); RED BLOOD CELL COUNT(AUTO) 3.16 MIL/uL (4.00-5.50); RED CELL DISTRIBUTION WIDTH 14.1 % (11.0-15.5); WHITE BLOOD COUNT (AUTO) 5.7 K/uL (4.8-10.8)
--- NOTE | 2024-12-25 10:23 | PN ---
[facility] PROGRESS NOTE Date Patient Seen: Dec 25, 2024 Time of Visit: 10:21 Supervising Physician: [ ] Dr. Dante Miranda Primary Care Physician: [Dr. Acosta] Outpatient Specialists: [ ] Inpatient Consults: [ ] PROBLEM LIST: Toxic metabolic encephalopathy - resolved Worsening dementia-POA DIANNE- ST 3B GFR 35 ML/MIN -POA - resolved Dehydration-POA resolved Intractable diarrhea -POA resolved Acute blood loss anemia d/t hematochezia - resolved - refused colonoscopy Geriatric failure to thrive-POA Type 2 DM w/ hyperglycemia Primary HTN HLD Prior stroke PLAN SUMMARY: Supplemental oxygen as needed Continue Rocephin Continue Flagyl Continue IV fluids Patient refused colonoscopy Outpatient follow up with GI PT evaluate and treat Cm to refer to SNF Dispo: [facility] once accepted INTERVAL HISTORY: [Patient is a 79-year-old female with PMH significant for prior stroke, dementia, HTn, HLD and DM who has presented tot ED accompanied by her family concerning worsening dementia and 1-week duration diarrhea. Apparently, she has been more confused than usual and [id number] lately. She would have bowel incontinence and would play with the feces. She has been refusing to eat and drink. Significant negatives are fever, chills, N/V, chest pain, abdominal pain, generalized weakness, dyspnea or syncope. Family was concerned that they cannot take care of her anymore and needs to be placed in a nursing or dementia home. At [facility] ED, her preliminary labworks revealed DIANNE, no leukocytosis and CXR was unremarkable. Head CT was negative for acute intracranial abnormality. She was given IV fluid resuscitation and IV Rocephin pending urinalysis.ON my assessment, patient was found walking in the hallway, steady and without signs of distress or compromise. She was accompanied by her [id number]. She is confused but carries conversation in high spirits and laughs a lot. Family denies visual or auditory hallucination. It was just progressive worsening of confusion and management of ADLs. 12/22 - patient is seen and evaluated in the ED. Patient continues to be encephalopathic however she was awake alert and quite confused. Patient remains on room air with no signs of respiratory distress. We are still pending UA to rule out acute cystitis. No acute changes reported overnight. Vital signs are stable. We will start patient on empiric antibiotics given she remains with leukocytosis. CT of the abdomen and pelvis unremarkable. CT of the head showed no acute intracranial bleed. We will request case management to refer patient for SNF placement. We will continue current treatment plan for now. 12/23 - patient is seen lying in bed resting quietly continues to be confused. Patient does not appear to be in any acute distress at this time. Patient is awake alert however demented. Was informed by nursing that patient has started having a large amount of bloody stools yesterday evening. As per nursing, no re current hematochezia this morning. Patient was evaluated by GI and recommended a colonoscopy however patient was not able to tolerate GoLYTELY. Instructed nursing to attempt once again today. We will follow GI recommendations. Patient's vital signs are stable. Labs show H&H slowly trending down to 9.3/27.7 from 12.1/35.2 On admission. We will monitor closely. 12/24 - Patient is seen sitting up in bed resting quietly. Patient's mental status continues to improve daily. Patient is awake alert however she does remain confused. No recurrent hematochezia noted or reported as per nursing. No acute changes reported overnight. H&H 9.3/28.0 as per today's labs. Patient refused to take colonoscopy prep therefore given the fact the patient has not had any recurrent hematochezia, GI has placed a colonoscopy on hold for now. Recommended outpatient follow up in the clinic2 weeks post discharge. Patient has been referred to [facility] and currently pending acceptance. Vital signs are stable. Labs are within normal limits. Procalcitonin negative. We will continue current treatment plan for now. We will DC to [facility] once accepted. 12/25 - patient is seen sitting up in bed with no signs of acute distress. Patient does appear weak and her mental status continues to improve as per baseline. As per nursing, no recurrent hematochezia, hematemesis or melena rep orted. No acute changes reported overnight. Patient H and H remained stable as today's labs show 9.9/28.8. White count in the normal limits. Patient has been referred to [facility] and currently pending acceptance. We will DC once arrangements are made. REVIEW OF SYSTEMS: Unable to obtain due to patient's encephalopathic state. PHYSICAL EXAM: GENERAL: alert, awake oriented x 1 HEENT: EOMI, Sclera non icteric, moist mucosa NECK: Supple, no JVD, trachea midline LUNGS: Clear breath sounds bilaterally. No wheezes HEART: Regular rate and rhythm. Normal S1 and S2, without murmurs ABD: Abdomen soft, nontender. Bowel sounds present EXT: No clubbing cyanosis or edema NEURO: Alert and oriented to self, follows commands Vital Signs (last 8hr) Date Time Temp Pulse Resp B/P (MAP) Pulse Ox O2 Delivery O2 Flow Rate FiO2 12/25/24 08:23 97.9 63 19 136/67 100 12/25/24 04:00 98.2 70 19 129/70 98 Room Air LABS: Hematology Labs: Test 12/25/24 05:11 Range/Units White Blood Count 5.7 4.8-10.8 K/uL Red Blood Count 3.16 L 4.00-5.50 MIL/uL Hemoglobin 9.9 L 12.0-16.0 g/dL Hematocrit 28.8 L 36-48 % Mean Corpuscular Volume 91.1 79-99 fL Mean Corpuscular Hemoglobin 31.3 27.0-33.0 pg Mean Corpuscular Hemoglobin Concent 34.4 32.0-36.0 g/dL Red Cell Distribution Width 14.1 11.0-15.5 % Platelet Count 297 130-400 K/uL Mean Platelet Volume 10.5 7.5-10.5 fL Immature Granulocyte % (Auto) 0.7 0-1 % Neutrophils (%) (Auto) 71.0 40.0-77.0 % Lymphocytes (%) (Auto) 17.9 L 21.0-51.0 % Monocytes (%) (Auto) 8.1 3.0-13.0 % Eosinophils (%) (Auto) 1.8 0.0-8.0 % Basophils (%) (Auto) 0.5 0.0-5.0 % Neutrophils # (Auto) 4.0 1.8-7.7 K/uL Lymphocytes # (Auto) 1.0 1.0-4.8 K/uL Monocytes # (Auto) 0.5 0.1-1.0 K/uL Eosinophils # (Auto) 0.10 0.00-0.70 K/uL Basophils # (Auto) 0.03 0.00-0.20 K/uL Absolute Immature Granulocyte (auto 0.04 0-1 K/uL Nucleated Red Blood Cells 0.0 0.0-0.19 % Chemistry Labs: Test 12/25/24 05:04 12/24/24 05:56 Range/Units Whole Blood Glucose 140 H 70-110 MG/DL Sodium Level 141 136-145 mmol/L Potassium Level 3.3 L 3.5-5.1 mmol/L Chloride Level 106 101-111 mmol/L Carbon Dioxide Level 29 21-32 mmol/L Blood Urea Nitrogen 16 7-18 mg/dL Creatinine 0.9 0.5-1.0 mg/dL Glomerular Filtration Rate Calc 65 >90 mL/min Random Glucose 127 H 70-105 mg/dL Total Calcium 7.4 L 8.5-10.1 mg/dL Procalcitonin 0.06 0.05-0.5 ng/mL DIAGNOSTICS / RADIOLOGY RESULTS: [ ] PLAN NEURO: Minimize central acting medications as possible. Maintain fall precautions, adequate lighting during the day PULMONARY: Supplemental 02 as needed. Maintain aspiration precautions at all times CARDIOVASCULAR: Follow hemodynamics. Vital signs per facility protocol GI & NUTRITION: Continue with nutritional support. Continue stool softeners and laxatives as needed. Outpatient follow up with GI KIDNEYS & ELECTROLYTES: Strict monitoring of intake, output and overall fluid balance. Avoid nephrotoxic medications to the extent possible. Medications to be dosed according to renal function. Monitor electrolytes and replace as needed ENDOCRINE: Maintain blood glucose between 100-180 at all times. Hypoglycemia protocol in place INFECTIOUS DISEASE: Trend temperature, WBC and procalcitonin level Follow cultures, deescalate antibiotics as soon as possible. Panculture if new onset fever ONCOLOGY/HEMATOLOGY/COAGULATION: Monitor for s/s of bleeding Monitor hemoglobin, coagulation studies as needed SKIN: Pressure ulcer prevention per facility protocol Specialty mattress ORTHO/REHAB: Continue PT/OT Prophylaxis: Continue GI and DVT prophylaxis Code Status: Full Resuscitation Disposition: [facility] once accepted Other: Total patient care time: 35 minutes ATTESTATION BY PHYSICIAN The patient has been seen and evaluated, the case has been discussed with the TAX REVENUE OFFICER, I agree with the clinical findings and plan of care. Reji Miranda MD,GABBY Joaquin TAX REVENUE OFFICER Dec 25, 2024 10:23
[2024-12-26] VITALS: BP 132/74; PULSE 64; RESP 20; TEMP 98.5
[2024-12-26 03:53] VITALS: BP 144/70; PULSE 69; RESP 18; TEMP 97.8
[2024-12-26 08:00] VITALS: O2SAT 98
[2024-12-26 08:09] VITALS: BP 130/65; PULSE 59; RESP 16; TEMP 98.1
--- NOTE | 2024-12-26 09:09 | PN ---
GASTROENTEROLOGY PROGRESS NOTE Date of Visit: Dec 26, 2024 Time of Visit: 09:09 Events / Notes: No acute events overnight. Patient is planned for colonoscopy today however she did not complete prep. She is refusing prep last night. Today she had 2 bowel movements without any overt GI bleeding. Hemoglobin is stable. Review of Systems: CONSTITUTIONAL: No malaise or change in sensation of wellbeing. ENMT: No rhinorrhea, otorrhea, sinus pain, ear ache. CARDIOVASCULAR: No angina, palpitations, orthopnea or paroxysmal dyspnea. RESPIRATORY: No SOB. GASTROINTESTINAL: No abdominal pain, nausea, vomiting, diarrhea, hematemesis, melena or change in the patient's habitual bowel movements consistency/number. GENITOURINARY: No dysuria, hematuria or change in bladder continence. MUSCULOSKELETAL: No new muscle pain or decrease in muscular strength. No new joint swelling, redness or tenderness. SKIN: No new rash. Physical Exam: GEN: Awake, alert, oriented in person, time and place, and in no acute distress. HEENT: No sinus tenderness. Tympanic membranes were not examined. No rhinorrhea. Oral pharyngeal mucosa is pink, moist and within normal limits. Neck is supple with no cervical lymphadenopathy, thyromegaly or JVD. CHEST: Inspection, palpation and percussion of the chest were unremarkable. Lung auscultation revealed normal breath sounds bilaterally. CARDIAC: PMI is within normal limits. Heart sounds are regular. Normal S1, S2. No gallop or murmur. ABD: Soft, non-tender and not distended. No peritoneal signs on palpation. No organomegaly. Normal bowel sounds. EXT: No cyanosis or clubbing. No edema. SKIN: Intact. No rashes. JOINTS: No evidence of synovitis or acute arthritis. NEURO: Alert and oriented to name, place and person. Cranial nerve examination is unremarkable. No focal motor deficits. Normal speech. Gait is normal. Strength is normal. Vital Signs (last 8hr) Date Time Temp Pulse Resp B/P (MAP) Pulse Ox O2 Delivery O2 Flow Rate FiO2 12/26/24 08:09 98.1 59 16 130/65 98 12/26/24 03:53 97.9 69 18 144/70 98 Room Air Laboratory: [ ] Laboratory: Test 12/26/24 05:12 12/25/24 05:11 Range/Units Whole Blood Glucose 146 H 70-110 MG/DL White Blood Count 5.7 4.8-10.8 K/uL Red Blood Count 3.16 L 4.00-5.50 MIL/uL Hemoglobin 9.9 L 12.0-16.0 g/dL Hematocrit 28.8 L 36-48 % Mean Corpuscular Volume 91.1 79-99 fL Mean Corpuscular Hemoglobin 31.3 27.0-33.0 pg Mean Corpuscular Hemoglobin Concent 34.4 32.0-36.0 g/dL Red Cell Distribution Width 14.1 11.0-15.5 % Platelet Count 297 130-400 K/uL Mean Platelet Volume 10.5 7.5-10.5 fL Immature Granulocyte % (Auto) 0.7 0-1 % Neutrophils (%) (Auto) 71.0 40.0-77.0 % Lymphocytes (%) (Auto) 17.9 L 21.0-51.0 % Monocytes (%) (Auto) 8.1 3.0-13.0 % Eosinophils (%) (Auto) 1.8 0.0-8.0 % Basophils (%) (Auto) 0.5 0.0-5.0 % Neutrophils # (Auto) 4.0 1.8-7.7 K/uL Lymphocytes # (Auto) 1.0 1.0-4.8 K/uL Monocytes # (Auto) 0.5 0.1-1.0 K/uL Eosinophils # (Auto) 0.10 0.00-0.70 K/uL Basophils # (Auto) 0.03 0.00-0.20 K/uL Absolute Immature Granulocyte (auto 0.04 0-1 K/uL Nucleated Red Blood Cells 0.0 0.0-0.19 % Current Medications Medications (Trade) Dose Ordered Sig/Pasha Route PRN Reason Start Time Stop Time Status Last Admin Dose Admin Acetaminophen (TYLenol 325MG TAB) 650 mg Q6H PRN PO FEVER/MILD PAIN LEVEL 1-3 12/21/24 18:00 01/20/25 17:59 Ceftriaxone Sodium (Rocephin 2gm Inj) 2 gm Q24H IVPB 12/22/24 12:30 01/01/25 12:29 12/25/24 11:52 2 GM Dextrose (D50w) 50 ml AD PRN IV HYPOGLYCEMIA PROTOCOL 12/21/24 18:00 3/14/25 17:59 Glucagon (Glucagon 1mg Kit) 1 mg AD PRN IM HYPOGLYCEMIA PROTOCOL 12/21/24 18:00 01/20/25 17:59 Insulin Human Regular (humuLIN R 100 UNIT/ML 3ML) INSULIN SLIDING SCAL... ACHS SQ 12/21/24 21:00 01/20/25 20:59 12/25/24 11:53 2 UNIT Labetalol HCl (TRANdate 20MG SYG) 5 mg Q2H PRN IV SBP GREATER THAN 160 12/21/24 18:00 01/20/25 17:59 Lactated Ringer's 1,000 ml @ 50 mls/hr Q20H IV 12/21/24 18:00 01/20/25 17:59 12/25/24 09:38 50 MLS/HR Magnesium Sulfate 50 ml @ 0 mls/hr PROTOCOL PRN IV MAGNESIUM PROTOCOL 12/21/24 18:00 01/20/25 17:59 12/23/24 06:56 10 MLS/HR Metronidazole/ Sodium Chloride (flaGYL) 500 mg Q8H IV 12/22/24 13:30 01/01/25 13:29 12/26/24 05:26 500 MG Ondansetron HCl (zoFRAN 4MG INJ) 4 mg Q6H PRN IVP NAUSEA/VOMITING 12/21/24 18:00 01/20/25 17:59 Pantoprazole Sodium (PROTonix 40MG INJ) 40 mg BID IVP 12/22/24 21:00 01/21/25 20:59 12/25/24 20:09 40 MG Potassium Chloride 100 ml @ 100 mls/hr AD PRN IV POTASSIUM PROTOCOL 12/22/24 21:30 01/21/25 21:29 12/22/24 21:55 100 MLS/HR Potassium Chloride (K-Dur/Klor-Con 20meq) 20 meq AD PRN PO POTASSIUM PROTOCOL 12/22/24 21:30 01/21/25 21:29 12/24/24 17:28 20 MEQ Potassium Chloride (KCl 10% Elixir 20meq/15ml) 20 meq AD PRN PO POTASSIUM PROTOCOL 12/22/24 21:30 01/21/25 21:29 Diagnostics / Radiology: [COPY/PASTE HERE IF NO REPORTS PLEASE DELETE SECTION] Assessment: Hematochezia Abnormal imaging with rectal wall thickening Diarrhea CVA Plan: Obtain stool studies Defer colonoscopy at this time given noncompliance, stable hgb and no further overt GI bleeding Consider discussion for goals of care Family attempted to be reached and no response Continue GI prophylaxis Avoid NSAIDs Antireflux measures Monitor H&H and transfuse as needed Call with questions, concerns or change in clinical status Patient to follow-up at clinic post discharge Thank you for this consult EMPERATRIZ MARTINEZP Dec 26, 2024 09:09
--- NOTE | 2024-12-26 10:07 | DS ---
[facility] DISCHARGE SUMMARY Date Patient Seen: Dec 26, 2024 Time of Visit: 10:04 Supervising Physician: Rigo Horn Primary Care Physician: [Dr. Acosta] Outpatient Specialists: [ ] Inpatient Consults: [ ] PROBLEM LIST: Toxic metabolic encephalopathy - resolved Worsening dementia-POA DIANNE- ST 3B GFR 35 ML/MIN -POA - resolved Dehydration-POA resolved Intractable diarrhea -POA resolved Acute blood loss anemia d/t hematochezia - resolved - refused colonoscopy Geriatric failure to thrive-POA Type 2 DM w/ hyperglycemia Primary HTN HLD Prior stroke HOSPITAL COURSE: HPI (per admitting provider) [Patient is a 79-year-old female with PMH significant for prior stroke, dementia, HTn, HLD and DM who has presented tot ED accompanied by her family concerning worsening dementia and 1-week duration diarrhea. Apparently, she has been more confused than usual and [id number]-[id number] lately. She would have bowel incontinence and would play with the feces. She has been refusing to eat and drink. Significant negatives are fever, chills, N/V, chest pain, abdominal pain, generalized weakness, dyspnea or syncope. Family was concerned that they cannot take care of her anymore and needs to be placed in a nursing or dementia home. At [facility] ED, her preliminary labworks revealed DIANNE, no leukocytosis and CXR was unremarkable. Head CT was negative for acute intracranial abnormality. She was given IV fluid resuscitation and IV Rocephin pending urinalysis.ON my a ssessment, patient was found walking in the hallway, steady and without signs of distress or compromise. She was accompanied by her bxeefmcq-wf-nun. She is confused but carries conversation in high spirits and laughs a lot. Family denies visual or auditory hallucination. It was just progressive worsening of confusion and management of ADLs. 12/22 - patient is seen and evaluated in the ED. Patient continues to be encephalopathic however she was awake alert and quite confused. Patient remains on room air with no signs of respiratory distress. We are still pending UA to rule out acute cystitis. No acute changes reported overnight. Vital signs are stable. We will start patient on empiric antibiotics given she remains with leukocytosis. CT of the abdomen and pelvis unremarkable. CT of the head showed no acute intracranial bleed. We will request case management to refer patient for SNF placement. We will continue current treatment plan for now. 12/23 - patient is seen lying in bed resting quietly continues to be confused. Patient does not appear to be in any acute distress at this time. Patient is awake alert however demented. Was informed by nursing that patient has started having a large amount of bloody stools yesterday evening. As per nursing, no recurrent hematochezia this morning. Patient was evaluated by GI and recommended a colonoscopy however patient was not able to tolerate GoLYTELY. Instructed nursing to attempt once again today. We will follow GI recommendations. Patient's vital signs are stable. Labs show H&H slowly trending down to 9.3/27.7 from 12.1/35.2 On admission. We will monitor closely. 12/24 - Patient is seen sitting up in bed resting quietly. Patient's mental status continues to improve daily. Patient is awake alert however she does remain confused. No recurrent hematochezia noted or reported as per nursing. No acute changes reported overnight. H&H 9.3/28.0 as per today's labs. Patient refused to take colonoscopy prep therefore given the fact the patient has not had any recurrent hematochezia, GI has placed a colonoscopy on hold for now. Recommended outpatient follow up in the clinic2 weeks post discharge. Patient has been referred [facility] and currently pending acceptance. Vital signs are stable. Labs are within normal limits. Procalcitonin negative. We will continue current treatment plan for now. We will DC to [facility] once accepted. 12/25 - patient is seen sitting up in bed with no signs of acute distress. Patient does appear weak and her mental status continues to improve as per baseline. As per nursing, no recurrent hematochezia, hematemesis or melena reported. No acute changes reported overnight. Patient H and H remained stable as today's labs show 9.9/28.8. White count in the normal limits. Patient has been referred to [facility] and currently pending acceptance. We will DC once arrangements are made. Today patient is seen sitting up at the side of the bed with no signs of acute distress. Patient's mental status is back to baseline. No recurrent melena noted or reported. H&H has remained stable. Vital signs are stable. No acute changes reported overnight. Was informed by case management that patient has been accepted to [facility]. Patient to continue all current medications and treatments. Patient continue physical therapy SNF. Patient has been advised to follow up with PCP in the next 1-2 days. Patient has been advised to follow up with GI in 1-2 weeks. Medication reconciliation has been completed. Education regarding current diagnosis been provided to the patient. All questions have been answered. Patient to be discharged SNF. The patient was treated for the following problems: ACTIVE PROBLEM LIST FOR THE HOSPITALIZATION: Toxic metabolic encephalopathy - resolved Worsening dementia-POA DIANNE- ST 3B GFR 35 ML/MIN -POA - resolved Dehydration-POA resolved Intractable diarrhea -POA resolved Acute blood loss anemia d/t hematochezia - resolved - refused colonoscopy Geriatric failure to thrive-POA Type 2 DM w/ hyperglycemia Primary HTN HLD Prior stroke CHRONIC PROBLEMS: continue previous management per PCP unless otherwise indicated CORK WIRER FINDINGS/RECOMMENDATIONS: [ ] Patient refused colonoscopy therefore recommend patient follow up in 1-2 weeks. PROCEDURES: as mentioned above DISCHARGE MEDICATIONS: See DC med rec Pt hemodynamically stable and afebrile at time of discharge. PCP notified of patients admission, hospital course and discharge. Continued Medications: Atorvastatin Calcium (Atorvastatin Calcium) 40 Mg Tablet 40 MG PO DAILY, TAB [cranberry] () 1 TAB PO DAILY Donepezil HCl (Donepezil HCl) 5 Mg Tablet 5 MG PO HS, TAB Hydrochlorothiazide (Hydrochlorothiazide) 12.5 Mg Tablet 12.5 MG PO DAILY, TAB Loratadine (Loratadine) 10 Mg Capsule 10 MG PO DAILY, CAP Losartan Potassium (Losartan Potassium) 25 Mg Tablet 25 MG PO DAILY, TAB Metformin HCl (Metformin HCl) 500 Mg Tablet 500 MG PO BID, TAB Sertraline HCl (Sertraline HCl) 50 Mg Tablet 50 MG PO DAILY, TAB [vitamin c] () 2000 MG PO DAILY Discontinued Medications: Aspirin (Aspirin) 325 Mg Tablet 325 MG PO BID, #60 TAB Hydrocodone/Acetaminophen (Hallam 5-325 Tablet) 1 Each Tablet 1-2 EACH PO Q6HPRN PRN for psin, #90 TAB Nitrofurantoin/Nitrofuran Mac (Macrobid) 100 Mg Cap 1 CAP PO BID for 7 Days, #14 CAP 0 Refills PHYSICAL EXAM: GENERAL: alert, awake oriented x 1 HEENT: EOMI, Sclera non icteric, moist mucosa NECK: Supple, no JVD, trachea midline LUNGS: Clear breath sounds bilaterally. No wheezes HEART: Regular rate and rhythm. Normal S1 and S2, without murmurs ABD: Abdomen soft, nontender. Bowel sounds present EXT: No clubbing cyanosis or edema NEURO: Alert and oriented to self, follows commands FOLLOW-UP: Follow-up with PCP in 2-3 days Follow up with GI in 1-2 weeks RECOMMENDATIONS: See Discharge Instructions This case was seen and discussed with my supervising physician. More than 30 minutes spent on discharge process, including evaluation of the patient, discussion with nursing staff, medication reconciliation and follow-up appointments ATTESTATION BY PHYSICIAN I reviewed the documentation, medical decision making, and treatment plan as noted by the mid-level provider above. I agree with the findings and plan of care. Jethro Horn MD, ECTOR N NP Dec 26, 2024 10:07
[2024-12-26 11:25] VITALS: BP 129/70; PULSE 66; RESP 18; TEMP 97.6
--- NOTE | 2024-12-26 12:15 | NUR ---
discharge educated patient, but not able to comprehend, dementia, oriented x1-2, contacted son to educate him on diet, activity, follow up needed to be scheduled, and medications, made him aware that patient is going to be transported to [facility] or [facility], son understood. called report to [facility] [place], spoke to NAHOMI Beard.
--- NOTE | 2024-12-26 13:01 | NUR ---
facility transport niecy arrived to transport patient to facility
== END 2024-12-26 13:00 | DRG 682 ==
LOC: EDH 14:12 → OBSVTOIN 17:32 → EDHIP 17:32 → 3DH 12-22 23:37
PROVIDERS: ADMIT Internal Medicine Critical Care Medicine; ATTEND Internal Medicine Critical Care Medicine
DX: N17.9 Acute kidney failure, unspecified (principal); G92.8 Other toxic encephalopathy; K92.1 Melena; D62 Acute posthemorrhagic anemia; E86.0 Dehydration; F03.90 Unspecified dementia, unspecified severity, without behavioral disturbance, psychotic disturbance, mood disturbance, and anxiety; E11.65 Type 2 diabetes mellitus with hyperglycemia; I10 Essential (primary) hypertension; R62.7 Adult failure to thrive; E78.00 Pure hypercholesterolemia, unspecified; Z53.20 Procedure and treatment not carried out because of patient's decision for unspecified reasons; Z68.20 Body mass index [BMI] 20.0-20.9, adult; Z86.73 Personal history of transient ischemic attack (TIA), and cerebral infarction without residual deficits; F32.A Depression, unspecified; Z79.899 Other long term (current) drug therapy
CPT/HCPCS: 36415; 70450; 74176; 80048; 80053; 81001; 82270; 82948; 83630; 83735; 84100; 84132; 84145; 84443; 85014; 85018; 85025; 85027; 86850; 86900; 86901; 87507; 99291; G0378; J0696; J1815; J2470; J3475; J3480; J3490